=== PATIENT | female | born 1955 | race Caucasian/White ===

== ENCOUNTER 2019-11-28 01:39 | Outpatient (CLI) | payer OTHER, SELFPAY ==
--- NOTE | 2019-11-28 07:47 | DI.MAMMO_ITS ---
EXAM: MG MAMMO SCREENING CLINICAL HISTORY: SCREENING, Z12.31. TECHNIQUE: Bilateral full field digital CC and MLO mammographic images were obtained with 3D tomosyn thesis and utilizing computer aided detection (CAD). COMPARISON: Available for comparison. FINDINGS: Masses/Architectural Distortion: None seen. Asymmetric breast tissue in the upper-outer quadrant of t he left breast appears stable. Microcalcifications: No suspicious pleomorphic-type are seen. Skin Thickening/Nipple Retraction: None. IMPRESSION: 1. No significant interval change with no specific features of malignancy noted. 2. Unless there is more urgent need, screening mammography is recommended, as per [place] [employer] guidelines. BI-RADS Cat 2 - Benign Findings Breast Density - Category B - Scattered areas of fibroglandular density A negative radiographic report should not delay biopsy if a dominant or clinically suspicious mass is present. Up to ten percent of cancers are not identified on mammography. A negative report may reinforce clinical impression. Adenosis and dense breasts may obscure an underlying neoplasm. False positive reports average 6 to 10%. Patient will receive a letter notifying them of these results.
== END 2019-11-28 01:59 ==
PROVIDERS: PCP Family Medicine; Visit Provider Family Medicine
DX: Z12.31 Encounter for screening mammogram for malignant neoplasm of breast (principal)
CPT/HCPCS: 77063; 77067

== ENCOUNTER 2020-06-30 14:03 | Outpatient (REF) | payer OTHER, SELFPAY ==
[2020-07-03 23:40] LABS: SARS-CoV-2 RNA Undetected (Undetected)
== END 2020-06-30 14:23 ==
LOC: NCHCN 14:03
PROVIDERS: PCP Family Medicine; Visit Provider Family Medicine
DX: Z20.828 Contact with and (suspected) exposure to other viral communicable diseases (principal)
CPT/HCPCS: U0003

== ENCOUNTER 2020-10-16 14:28 | Outpatient (REF) | payer OTHER, SELFPAY ==
[2020-10-16 22:23] LABS: ALT 24 U/L (14-59); AST 27 U/L (15-37); Albumin 4.3 g/dL (3.4-5.0); Alkaline Phosphatase 71 U/L (46-116); Anion Gap 10.9 mmol/L (3-11); BUN 15 mg/dL (7-18); Bilirubin, Total 0.3 mg/dL (0.2-1.0); CO2 28.1 mmol/L (21.0-32.0); CREATININE 0.81 mg/dL (0.55-1.02); Calcium 9.1 mg/dL (8.5-10.1); Chloride 101 mmol/L (98-107); Cholesterol 267 mg/dL (<200); Glucose 86 mg/dL (74-106); Sodium 140 mmol/L (136-145); Total Protein 7.6 g/dL (6.4-8.2); Triglyceride 87 mg/dL (<150)
[2020-10-16 22:58] LABS: Calculated LDL 149 mg/dL (<100); HDL Cholesterol 101 mg/dL (40-60)
[2020-10-19 05:23] LABS: Vitamin D 25 Total 26.2 ng/ml (30-100)
== END 2020-10-16 14:48 ==
LOC: NCHCN 14:28
PROVIDERS: PCP Family Medicine; Visit Provider Family Medicine
DX: Z00.00 Encounter for general adult medical examination without abnormal findings (principal); Z13.220 Encounter for screening for lipoid disorders; Z13.228 Encounter for screening for other metabolic disorders
CPT/HCPCS: 80053; 80061; 82306

== ENCOUNTER 2020-10-26 20:37 | Outpatient (REF) | payer OTHER, SELFPAY ==
[2020-10-29 00:30] LABS: COVID-19 RT-PCR Result NEGATIVE (Negative)
== END 2020-10-26 20:57 ==
LOC: NCHCN 20:37
PROVIDERS: PCP Family Medicine; Visit Provider Family Medicine
DX: Z20.828 Contact with and (suspected) exposure to other viral communicable diseases (principal)
CPT/HCPCS: U0003

== ENCOUNTER 2020-12-04 02:41 | Outpatient (CLI) | payer OTHER, SELFPAY ==
--- NOTE | 2020-12-04 | DI.MAMMO_ITS ---
EXAM: MG MAMMO SCREENING CLINICAL HISTORY: SCREENING, Z12.31. TECHNIQUE: Bilateral full field digital CC and MLO mammographic images were obtained with 3D tomosyn thesis and utilizing computer aided detection (CAD). COMPARISON: Prior mammograms dating back to 2010, the most recent being November 2019. FINDINGS: There are no spiculated masses nor malignant appearing microcalcification groups. There is no signif icant architectural distortion nor skin thickening-retraction. IMPRESSION: No radiographic evidence of malignancy. BI-RADS Category 1 - Negative Breast Density - Category B - Scattered areas of fibroglandular density Breast density Category C or D implies that the patient has dense breast tissue. Dense breast tissue can make it harder to find cancer on a mammogram. Dense breast tissue is also associated with an incr eased risk of breast cancer. This information about the result of the mammogram report was provided to the patient to raise their awareness. Use this report when you speak with the patient about their risks for breast cancer, which includes their family history. At that time, you may recommend additional screening tests (Ultrasoun d or MRI) as these tests may add significant information. A negative radiographic report should not delay biopsy if a dominant or clinically suspicious mass is present. Up to ten percent of cancers are not identified on mammography. A negative report may reinforce clinical impression. Adenosis and dense breasts may obscure an underlying neoplasm. False positive reports average 6 to 10%. Patient will receive a letter notifying them of these results.
== END 2020-12-04 03:01 ==
PROVIDERS: PCP Family Medicine; Visit Provider Family Medicine
DX: Z12.31 Encounter for screening mammogram for malignant neoplasm of breast (principal)
CPT/HCPCS: 77063; 77067

== ENCOUNTER 2021-06-21 23:12 | Outpatient (REF) | payer OTHER, SELFPAY ==
[2021-06-21 21:20] LABS: Abs Immature Grans 0.01 10^3/uL (0.0-0.06); Absolute Basophil Count 0.04 10^3/uL (0.0-0.2); Absolute Eosinophil Count 0.02 10^3/uL (0.0-0.7); Absolute Monocyte Count 0.71 10^3/uL (0.1-0.8); Basophils % 0.4; Eosinophils % 0.2; HCT 42.5 % (36.0-46.0); HGB 13.7 g/dL (11.2-15.7); Immature Grans % 0.1; Lymphocytes % 11.1; MCH 30.2 pg (27.0-33.0); MCHC 32.2 % (32.0-36.0); MCV 93.6 fL (80-95); MPV 10.9 fL (8.0-11.0); Monocytes % 7.9; Neutrophils % 80.3; Nucleated RBC 0 %; Platelet Count 342 10^3/uL (130-400); RBC 4.54 10^6/uL (3.93-5.22); WBC 8.98 10^3/uL (4.4-10.8)
[2021-06-21 21:36] LABS: Bilirubin Negative (Negative); Blood Negative (Negative); Clarity Clear (Clear); Glucose Negative (Negative); Ketones Trace mg/dL (Negative); Leukocyte Esterase Negative (Negative); Nitrite Negative (Negative); Specific Gravity 1.015 (1.005-1.025); Urobilinogen 0.2 EU/dL (Up TO 0.2)
[2021-06-21 21:42] LABS: ALT 56 U/L (14-59); AST 64 U/L (15-37); Albumin 3.2 g/dL (3.4-5.0); Alkaline Phosphatase 93 U/L (46-116); Anion Gap 10.5 mmol/L (3-11); BUN 10 mg/dL (7-18); Bilirubin, Total 0.5 mg/dL (0.2-1.0); CO2 26.5 mmol/L (21.0-32.0); CREATININE 0.7 mg/dL (0.55-1.02); Chloride 104 mmol/L (98-107); Glucose 85 mg/dL (74-106); Potassium 4.9 mmol/L (3.5-5.1); Sodium 141 mmol/L (136-145); Total Protein 6.2 g/dL (6.4-8.2)
[2021-06-23 13:55] LABS: COVID-19 RT-PCR UVMMC Result Negative (Negative)
== END 2021-06-21 23:13 | disposition home or self-care (01) ==
LOC: NCHCN 23:12
PROVIDERS: PCP Family Medicine; Visit Provider Family Medicine
DX: R10.9 Unspecified abdominal pain (principal); Z20.822 Contact with and (suspected) exposure to COVID-19
CPT/HCPCS: 80053; U0003; 81003; 85025

== ENCOUNTER 2021-06-30 01:45 | Outpatient (CLI) | payer OTHER, SELFPAY ==
[2021-06-30] MEDS: Omnipaque 350 MG/ML 100 ML BTL 70 ML IJ (14:52)
--- NOTE | 2021-06-30 15:00 | DI.CT_ITS ---
Exam(s) CT CHEST W EXAM: CT CHEST W CLINICAL HISTORY: CANCER, C80.1, NEOPLASTIC MASSES ABD/PELVIC CT. TECHNIQUE: Multi planar reconstructions were performed. CONTRAST MATERIAL: Omnipaque 350; 75 cc COMPARISON: RECENT ABDOMINAL CT SCAN WAS REVIEWED FINDINGS: CHEST: LUNGS: There mild atelectasis-mild infiltrate markings noted in the lingular segment and anterior bas al segment of the left lower lobe with atelectasis extending into the lateral basal segment of the le ft lower lobe. No pleural effusion. No distinct ominous nodules in the left lung. In the right lung there are mild subpleural markings in the right middle lobe lateral segment and lat eral basal segment of the right lower lobe. No distinct ominous lung nodules. No pleural effusions. There are no significant focal findings in the trachea and mainstem bronchi. MEDIASTINUM: There is no hilar nor mediastinal adenopathy. No axillary adenopathy. No supraclavicula r adenopathy.Visualize lower half of the thyroid gland appears unremarkable. CARDIAC: Heart size is normal. There is no pericardial effusion.Caliber of the thoracic aorta is wit hin normal limits. VISUALIZED UPPER ABDOMEN:Ascites and concerning peritoneal masses, as seen on recent abdominal CT sca n. OSSEOUS: No significant osseous lesions.. IMPRESSION: 1. Atelectasis and mild infiltrates in the lung bases as described above. No ominous pulmonary nodul es nor pleural effusions and no intrathoracic adenopathy. 2. No lytic osseous lesions. 3. Lower most images of this chest study reveal intra-abdominal ascites and masses described on the r ecent abdominal CT scan. RADIATION DOSE DELIVERED: 382.22mGy.cm Total DLP DATA REPOSITORY: All CT scans at this facility are submitted to the National Radiology Data Registry (NRDR) Dose Index Registry (DIR) with the [employer] (A[employer]). RADIATION OPTIMIZATION: All CT scans at this facility use at least one of these dose optimization te chniques: automated exposure control; mA and/or kV adjustment per patient size (includes targeted exa ms where dose is matched to clinical indication); or iterative reconstruction.
== END 2021-06-30 02:05 ==
PROVIDERS: PCP Family Medicine; Visit Provider Family Medicine
DX: C80.1 Malignant (primary) neoplasm, unspecified (principal); J98.11 Atelectasis; R91.8 Other nonspecific abnormal finding of lung field; R18.8 Other ascites; R19.07 Generalized intra-abdominal and pelvic swelling, mass and lump
CPT/HCPCS: 71260; J3490

== ENCOUNTER 2021-07-29 01:07 | Outpatient (RCR) | payer OTHER, SELFPAY ==
[2021-07-22 07:58] LABS: Abs Immature Grans 0.01 10^3/uL (0.0-0.06); Absolute Basophil Count 0.03 10^3/uL (0.0-0.2); Absolute Eosinophil Count 0.15 10^3/uL (0.0-0.7); Absolute Lymphocyte Count 1.07 10^3/uL (1.2-3.4); Absolute Monocyte Count 0.39 10^3/uL (0.1-0.8); Absolute Neutrophil Count 2.79 10^3/uL (1.2-6.7); Basophils % 0.7; Eosinophils % 3.4; HCT 40.3 % (36.0-46.0); Immature Grans % 0.2; Lymphocytes % 24.1; MCH 29.5 pg (27.0-33.0); MCHC 32.3 % (32.0-36.0); MCV 91.4 fL (80-95); MPV 9.8 fL (8.0-11.0); Monocytes % 8.8; Neutrophils % 62.8; Nucleated RBC 0 %; Platelet Count 301 10^3/uL (130-400); RBC 4.41 10^6/uL (3.93-5.22); RDW 11.9 % (11.7-14.6); RDW-SD 39.8 fL; WBC 4.44 10^3/uL (4.4-10.8)
[2021-07-22 08:16] LABS: ALT 74 U/L (14-59); AST 50 U/L (15-37); Alkaline Phosphatase 117 U/L (46-116); Anion Gap 8.2 mmol/L (3-11); BUN 16 mg/dL (7-18); Bilirubin, Total 0.2 mg/dL (0.2-1.0); CO2 28.8 mmol/L (21.0-32.0); CREATININE 0.8 mg/dL (0.55-1.02); Calcium 8.9 mg/dL (8.5-10.1); Chloride 104 mmol/L (98-107); Glucose 109 mg/dL (74-106); Potassium 4.3 mmol/L (3.5-5.1); Sodium 141 mmol/L (136-145); Total Protein 6.9 g/dL (6.4-8.2)
[2021-07-22] MEDS: Normal Saline Flush 10 ML SYR IVP (08:43)
[2021-07-22] MEDS: Heparin 500 UNITS/5 ML SYRINGE IV (09:36)
[2021-07-23 12:53] LABS: CA 125 4991 U/mL (<30)
[2021-07-29] MEDS: Normal Saline Flush 10 ML SYR IVP (07:40)
[2021-07-29] MEDS: Heparin 500 UNITS/5 ML SYRINGE IV (07:41)
[2021-07-29 07:48] LABS: Abs Immature Grans 0.01 10^3/uL (0.0-0.06); Absolute Basophil Count 0.05 10^3/uL (0.0-0.2); Absolute Eosinophil Count 0.15 10^3/uL (0.0-0.7); Absolute Lymphocyte Count 1.88 10^3/uL (1.2-3.4); Absolute Monocyte Count 0.85 10^3/uL (0.1-0.8); Basophils % 1.3; Eosinophils % 3.8; HCT 40.4 % (36.0-46.0); HGB 13.1 g/dL (11.2-15.7); Immature Grans % 0.3; Lymphocytes % 47.7; MCH 29.2 pg (27.0-33.0); MCHC 32.4 % (32.0-36.0); MPV 9.4 fL (8.0-11.0); Monocytes % 21.6; Neutrophils % 25.3; Nucleated RBC 0 %; Platelet Count 238 10^3/uL (130-400); RBC 4.49 10^6/uL (3.93-5.22); RDW 12.2 % (11.7-14.6); RDW-SD 40.3 fL; WBC 3.94 10^3/uL (4.4-10.8)
[2021-07-29 08:03] LABS: ALT 83 U/L (14-59); AST 51 U/L (15-37); Albumin 3.2 g/dL (3.4-5.0); Alkaline Phosphatase 107 U/L (46-116); Anion Gap 6.9 mmol/L (3-11); BUN 17 mg/dL (7-18); Bilirubin, Total 0.3 mg/dL (0.2-1.0); CO2 29.1 mmol/L (21.0-32.0); CREATININE 0.8 mg/dL (0.55-1.02); Calcium 9.1 mg/dL (8.5-10.1); Chloride 104 mmol/L (98-107); Glucose 95 mg/dL (74-106); Potassium 4.6 mmol/L (3.5-5.1); Sodium 140 mmol/L (136-145); Total Protein 6.9 g/dL (6.4-8.2)
[2021-07-30 15:18] LABS: CA 125 4123 U/mL (<30)
== END 2021-08-05 23:59 | disposition home or self-care (01) ==
LOC: INF 01:07
PROVIDERS: Obstetrics & Gynecology Gynecologic Oncology; PCP Family Medicine; Visit Provider Nurse Practitioner Family
DX: C78.6 Secondary malignant neoplasm of retroperitoneum and peritoneum (principal); Z45.2 Encounter for adjustment and management of vascular access device
CPT/HCPCS: 36591; 80053; 86304; 85025

== ENCOUNTER 2021-09-02 01:41 | Outpatient (RCR) | payer OTHER, SELFPAY ==
[2021-08-12] MEDS: Heparin 500 UNITS/5 ML SYRINGE IV (07:41)
[2021-08-12] MEDS: Normal Saline Flush 10 ML SYR IVP (07:41)
[2021-08-12 07:45] LABS: Abs Immature Grans 0.01 10^3/uL (0.0-0.06); Absolute Basophil Count 0.02 10^3/uL (0.0-0.2); Absolute Eosinophil Count 0.08 10^3/uL (0.0-0.7); Absolute Lymphocyte Count 1.46 10^3/uL (1.2-3.4); Absolute Monocyte Count 0.31 10^3/uL (0.1-0.8); Absolute Neutrophil Count 1.85 10^3/uL (1.2-6.7); Basophils % 0.5; Eosinophils % 2.1; HCT 38.2 % (36.0-46.0); HGB 12.3 g/dL (11.2-15.7); Immature Grans % 0.3; Lymphocytes % 39.1; MCH 28.9 pg (27.0-33.0); MCHC 32.2 % (32.0-36.0); MCV 89.7 fL (80-95); MPV 9.6 fL (8.0-11.0); Monocytes % 8.3; Neutrophils % 49.7; Nucleated RBC 0 %; Platelet Count 167 10^3/uL (130-400); RBC 4.26 10^6/uL (3.93-5.22); RDW 12.4 % (11.7-14.6); RDW-SD 40.7 fL; WBC 3.73 10^3/uL (4.4-10.8)
[2021-08-12 08:01] LABS: ALT 96 U/L (14-59); AST 50 U/L (15-37); Albumin 3.1 g/dL (3.4-5.0); Alkaline Phosphatase 95 U/L (46-116); Anion Gap 7.1 mmol/L (3-11); BUN 16 mg/dL (7-18); Bilirubin, Total 0.3 mg/dL (0.2-1.0); CO2 27.9 mmol/L (21.0-32.0); CREATININE 0.8 mg/dL (0.55-1.02); Calcium 8.7 mg/dL (8.5-10.1); Chloride 104 mmol/L (98-107); Glucose 118 mg/dL (74-106); Potassium 4.1 mmol/L (3.5-5.1); Sodium 139 mmol/L (136-145); Total Protein 6.6 g/dL (6.4-8.2)
[2021-08-13 12:13] LABS: CA 125 1770 U/mL (<30)
[2021-09-02] MEDS: Heparin 500 UNITS/5 ML SYRINGE IV (07:42)
[2021-09-02] MEDS: Normal Saline Flush 10 ML SYR IVP (07:42)
[2021-09-02 08:00] LABS: Abs Immature Grans 0.01 10^3/uL (0.0-0.06); Absolute Basophil Count 0.02 10^3/uL (0.0-0.2); Absolute Eosinophil Count 0.04 10^3/uL (0.0-0.7); Absolute Lymphocyte Count 1.74 10^3/uL (1.2-3.4); Absolute Monocyte Count 0.23 10^3/uL (0.1-0.8); Absolute Neutrophil Count 1.55 10^3/uL (1.2-6.7); Basophils % 0.6; Eosinophils % 1.1; HCT 36.1 % (36.0-46.0); HGB 11.8 g/dL (11.2-15.7); Immature Grans % 0.3; Lymphocytes % 48.5; MCH 29.1 pg (27.0-33.0); MCHC 32.7 % (32.0-36.0); MCV 88.9 fL (80-95); Monocytes % 6.4; Neutrophils % 43.1; Nucleated RBC 0 %; Platelet Count 207 10^3/uL (130-400); RBC 4.06 10^6/uL (3.93-5.22); RDW 13.9 % (11.7-14.6); RDW-SD 45.7 fL; WBC 3.59 10^3/uL (4.4-10.8)
[2021-09-02 08:20] LABS: ALT 62 U/L (14-59); AST 40 U/L (15-37); Albumin 3.2 g/dL (3.4-5.0); Alkaline Phosphatase 84 U/L (46-116); Anion Gap 7.5 mmol/L (3-11); BUN 12 mg/dL (7-18); Bilirubin, Total 0.3 mg/dL (0.2-1.0); CO2 29.5 mmol/L (21.0-32.0); CREATININE 0.7 mg/dL (0.55-1.02); Calcium 8.7 mg/dL (8.5-10.1); Chloride 105 mmol/L (98-107); Glucose 111 mg/dL (74-106); Potassium 4.1 mmol/L (3.5-5.1); Sodium 142 mmol/L (136-145); Total Protein 6.7 g/dL (6.4-8.2)
[2021-09-03 11:12] LABS: CA 125 1320 U/mL (<30)
== END 2021-09-05 23:59 | disposition home or self-care (01) ==
LOC: INF 01:41
PROVIDERS: PCP Family Medicine; Visit Provider Nurse Practitioner Family
DX: C78.6 Secondary malignant neoplasm of retroperitoneum and peritoneum (principal); Z45.2 Encounter for adjustment and management of vascular access device
CPT/HCPCS: 36591; 80053; 86304; 85025

== ENCOUNTER 2021-12-14 01:49 | Outpatient (CLI) | payer OTHER, SELFPAY ==
[2021-12-16 14:36] LABS: COVID-19 RT-PCR UVMMC Result Negative (Negative)
== END 2021-12-14 01:50 | disposition home or self-care (01) ==
LOC: LBO 01:49
PROVIDERS: PCP Family Medicine; Visit Provider Family Medicine
DX: Z20.822 Contact with and (suspected) exposure to COVID-19 (principal); C80.1 Malignant (primary) neoplasm, unspecified
CPT/HCPCS: U0003

== ENCOUNTER 2021-12-16 02:32 | Outpatient (RCR) | payer OTHER, SELFPAY | END 2022-01-03 23:59 | disposition home or self-care (01) | LOC: INF 02:32 | PROVIDERS: PCP Family Medicine; Visit Provider Family Medicine | DX: Z29.8 Encounter for other specified prophylactic measures (principal) | CPT/HCPCS: 96372; Q0221 ==

== ENCOUNTER 2022-01-18 01:20 | Outpatient (CLI) | payer OTHER, SELFPAY ==
[2022-01-19 01:25] LABS: COVID-19 RT-PCR UVMMC Result Negative (Negative)
== END 2022-01-18 01:21 | disposition home or self-care (01) ==
PROVIDERS: PCP Family Medicine; Visit Provider Family Medicine
DX: Z20.822 Contact with and (suspected) exposure to COVID-19 (principal); Z01.818 Encounter for other preprocedural examination
CPT/HCPCS: U0003

== ENCOUNTER 2022-01-20 03:18 | Outpatient (RCR) | payer OTHER, SELFPAY | END 2022-02-03 23:59 | disposition home or self-care (01) | LOC: INF 03:18 | PROVIDERS: PCP Family Medicine; Visit Provider Family Medicine | DX: Z29.8 Encounter for other specified prophylactic measures (principal) | CPT/HCPCS: 96372; Q0221 ==

== ENCOUNTER 2022-02-14 02:00 | Outpatient (RCR) | payer OTHER, SELFPAY ==
[2022-02-14] MEDS: Normal Saline Flush 10 ML SYR IVP (07:43)
[2022-02-14 07:51] LABS: Bilirubin Negative (Negative); Blood Negative (Negative); Clarity Clear (Clear); Glucose Negative (Negative); Ketones Negative (Negative); Leukocyte Esterase Negative (Negative); Nitrite Negative (Negative); Specific Gravity 1.015 (1.005-1.025); Urobilinogen 0.2 EU/dL (Up TO 0.2); pH 6.5 (5-8)
[2022-02-14 07:52] LABS: Absolute Basophil Count 0.02 10^3/uL (0.0-0.2); Absolute Eosinophil Count 0.03 10^3/uL (0.0-0.7); Absolute Lymphocyte Count 1.85 10^3/uL (1.2-3.4); Absolute Monocyte Count 0.44 10^3/uL (0.1-0.8); Basophils % 0.5; Eosinophils % 0.8; HCT 34.2 % (36.0-46.0); HGB 11.5 g/dL (11.2-15.7); Lymphocytes % 50.8; MCH 32.3 pg (27.0-33.0); MCHC 33.6 % (32.0-36.0); MCV 96.1 fL (80-95); MPV 9.2 fL (8.0-11.0); Monocytes % 12.1; Neutrophils % 35.8; Nucleated RBC 0 %; Platelet Count 188 10^3/uL (130-400); RBC 3.56 10^6/uL (3.93-5.22); RDW 15.9 % (11.7-14.6); RDW-SD 54.6 fL; WBC 3.64 10^3/uL (4.4-10.8)
[2022-02-14 08:06] LABS: ALT 33 U/L (14-59); AST 27 U/L (15-37); Albumin 3.8 g/dL (3.4-5.0); Alkaline Phosphatase 48 U/L (46-116); Anion Gap 9.9 mmol/L (3-11); BUN 11 mg/dL (7-18); Bilirubin, Total 0.4 mg/dL (0.2-1.0); CO2 25.1 mmol/L (21.0-32.0); CREATININE 0.8 mg/dL (0.55-1.02); Calcium 8.6 mg/dL (8.5-10.1); Chloride 101 mmol/L (98-107); Glucose 95 mg/dL (74-106); Magnesium 1.6 mg/dL (1.8-2.4); Potassium 3.7 mmol/L (3.5-5.1); Sodium 136 mmol/L (136-145); Total Protein 7.2 g/dL (6.4-8.2)
== END 2022-03-05 23:59 | disposition home or self-care (01) ==
LOC: INF 02:00
PROVIDERS: PCP Family Medicine; Visit Provider Internal Medicine Medical Oncology
DX: Z45.2 Encounter for adjustment and management of vascular access device (principal); C78.6 Secondary malignant neoplasm of retroperitoneum and peritoneum
CPT/HCPCS: 36591; 80053; 81003; 83735; 85025

== ENCOUNTER 2022-03-28 02:28 | Outpatient (RCR) | payer OTHER, SELFPAY ==
[2022-03-07] MEDS: Normal Saline Flush 10 ML SYR IVP (07:42)
[2022-03-07 08:14] LABS: Bilirubin Negative (Negative); Blood Negative (Negative); Clarity Clear (Clear); Glucose Negative (Negative); Ketones Negative (Negative); Leukocyte Esterase Trace (Negative); Nitrite Negative (Negative); Urobilinogen 0.2 EU/dL (Up TO 0.2)
[2022-03-07 08:19] LABS: Abs Immature Grans 0.01 10^3/uL (0.0-0.06); Absolute Basophil Count 0.02 10^3/uL (0.0-0.2); Absolute Eosinophil Count 0.06 10^3/uL (0.0-0.7); Absolute Lymphocyte Count 1.77 10^3/uL (1.2-3.4); Absolute Neutrophil Count 2.73 10^3/uL (1.2-6.7); Basophils % 0.4; Eosinophils % 1.2; HCT 34.4 % (36.0-46.0); HGB 11.5 g/dL (11.2-15.7); Immature Grans % 0.2; Lymphocytes % 34.8; MCH 33.1 pg (27.0-33.0); MCHC 33.4 % (32.0-36.0); MCV 99 fL (80-95); MPV 10.1 fL (8.0-11.0); Monocytes % 9.8; Neutrophils % 53.6; Platelet Count 220 10^3/uL (130-400); RBC 3.47 10^6/uL (3.93-5.22); RDW 17.7 % (11.7-14.6); RDW-SD 63.9 fL; WBC 5.09 10^3/uL (4.4-10.8)
[2022-03-07 08:23] LABS: Bacteria Few HPF (Negative); C & S Indicated? Yes; Casts Negative LPF (Negative); Crystals Negative HPF (Negative); Epithelial Cells Few HPF (Negative); Mucus Moderate (Negative); RBC Negative HPF (0-2)
[2022-03-07 08:44] LABS: ALT 29 U/L (14-59); AST 24 U/L (15-37); Albumin 3.9 g/dL (3.4-5.0); Alkaline Phosphatase 48 U/L (46-116); Anion Gap 7.7 mmol/L (3-11); BUN 13 mg/dL (7-18); Bilirubin, Total 0.4 mg/dL (0.2-1.0); CO2 26.3 mmol/L (21.0-32.0); CREATININE 0.9 mg/dL (0.55-1.02); Calcium 8.7 mg/dL (8.5-10.1); Chloride 105 mmol/L (98-107); Glucose 88 mg/dL (74-106); Magnesium 1.9 mg/dL (1.8-2.4); Potassium 4.2 mmol/L (3.5-5.1); Sodium 139 mmol/L (136-145); Total Protein 7.1 g/dL (6.4-8.2)
[2022-03-08 09:56] LABS: CA 125 <3 U/mL (<30)
[2022-03-28] MEDS: Normal Saline Flush 10 ML SYR IVP (08:10)
[2022-03-28 08:32] LABS: Absolute Basophil Count 0.03 10^3/uL (0.0-0.2); Absolute Eosinophil Count 0.06 10^3/uL (0.0-0.7); Absolute Lymphocyte Count 1.54 10^3/uL (1.2-3.4); Absolute Monocyte Count 0.52 10^3/uL (0.1-0.8); Basophils % 0.7; Eosinophils % 1.4; HCT 29.7 % (36.0-46.0); HGB 10.2 g/dL (11.2-15.7); Lymphocytes % 36.2; MCH 35.9 pg (27.0-33.0); MCHC 34.3 % (32.0-36.0); MCV 105 fL (80-95); Monocytes % 12.2; Neutrophils % 49.5; Platelet Count 168 10^3/uL (130-400); RBC 2.84 10^6/uL (3.93-5.22); RDW 17.2 % (11.7-14.6); RDW-SD 65.4 fL; WBC 4.25 10^3/uL (4.4-10.8)
[2022-03-28 08:33] LABS: Bilirubin Negative (Negative); Blood Negative (Negative); Clarity Clear (Clear); Glucose Negative (Negative); Ketones Trace mg/dL (Negative); Leukocyte Esterase Negative (Negative); Nitrite Negative (Negative); Urobilinogen 0.2 EU/dL (Up TO 0.2); pH 6.5 (5-8)
[2022-03-28 08:48] LABS: ALT 27 U/L (14-59); AST 24 U/L (15-37); Albumin 3.8 g/dL (3.4-5.0); Alkaline Phosphatase 54 U/L (46-116); Anion Gap 8.7 mmol/L (3-11); BUN 16 mg/dL (7-18); Bilirubin, Total 0.5 mg/dL (0.2-1.0); CO2 25.3 mmol/L (21.0-32.0); CREATININE 0.9 mg/dL (0.55-1.02); Calcium 8.9 mg/dL (8.5-10.1); Chloride 106 mmol/L (98-107); Glucose 93 mg/dL (74-106); Magnesium 1.9 mg/dL (1.8-2.4); Potassium 4.4 mmol/L (3.5-5.1); Sodium 140 mmol/L (136-145)
[2022-03-29 10:33] LABS: CA 125 4 U/mL (<30)
== END 2022-04-05 23:59 | disposition home or self-care (01) ==
LOC: INF 02:28
PROVIDERS: PCP Family Medicine; Visit Provider Internal Medicine Medical Oncology
DX: C78.6 Secondary malignant neoplasm of retroperitoneum and peritoneum (principal); C56.9 Malignant neoplasm of unspecified ovary; Z45.2 Encounter for adjustment and management of vascular access device
CPT/HCPCS: 36591; 80053; 86304; 81003; 81015; 83735; 85025; 87086

== ENCOUNTER 2022-04-18 03:07 | Outpatient (RCR) | payer OTHER, SELFPAY ==
[2022-04-18] MEDS: Normal Saline Flush 10 ML SYR IVP (07:53)
[2022-04-18 08:08] LABS: Abs Immature Grans 0.01 10^3/uL (0.0-0.06); Absolute Basophil Count 0.03 10^3/uL (0.0-0.2); Absolute Eosinophil Count 0.06 10^3/uL (0.0-0.7); Absolute Lymphocyte Count 1.59 10^3/uL (1.2-3.4); Absolute Monocyte Count 0.48 10^3/uL (0.1-0.8); Absolute Neutrophil Count 1.58 10^3/uL (1.2-6.7); Basophils % 0.8; Eosinophils % 1.6; HCT 25.4 % (36.0-46.0); Immature Grans % 0.3; Lymphocytes % 42.4; MCH 37.7 pg (27.0-33.0); MCHC 35.4 % (32.0-36.0); MCV 106 fL (80-95); MPV 10.8 fL (8.0-11.0); Monocytes % 12.8; Neutrophils % 42.1; Platelet Count 191 10^3/uL (130-400); RBC 2.39 10^6/uL (3.93-5.22); RDW 17.5 % (11.7-14.6); RDW-SD 67.7 fL; WBC 3.75 10^3/uL (4.4-10.8)
[2022-04-18 08:09] LABS: Bilirubin Negative (Negative); Blood Negative (Negative); Clarity Clear (Clear); Glucose Negative (Negative); Ketones Negative (Negative); Leukocyte Esterase Small (Negative); Nitrite Negative (Negative); Specific Gravity 1.015 (1.005-1.025); Urobilinogen 0.2 EU/dL (Up TO 0.2)
[2022-04-18 08:18] LABS: Bacteria Negative HPF (Negative); C & S Indicated? Yes; Casts Negative LPF (Negative); Crystals Negative HPF (Negative); Epithelial Cells Rare HPF (Negative); Mucus Trace (Negative); Other Cells Rare Transitional (Negative); RBC Negative HPF (0-2)
[2022-04-18 08:52] LABS: ALT 27 U/L (14-59); AST 24 U/L (15-37); Albumin 3.8 g/dL (3.4-5.0); Alkaline Phosphatase 58 U/L (46-116); Anion Gap 9.6 mmol/L (3-11); BUN 13 mg/dL (7-18); Bilirubin, Total 0.2 mg/dL (0.2-1.0); CO2 25.4 mmol/L (21.0-32.0); CREATININE 0.7 mg/dL (0.55-1.02); Calcium 8.9 mg/dL (8.5-10.1); Chloride 104 mmol/L (98-107); Glucose 93 mg/dL (74-106); Magnesium 1.8 mg/dL (1.8-2.4); Potassium 4.2 mmol/L (3.5-5.1); Sodium 139 mmol/L (136-145)
[2022-04-19 15:30] LABS: CA 125 6 U/mL (<30)
== END 2022-05-05 23:59 | disposition home or self-care (01) ==
LOC: INF 03:07
PROVIDERS: PCP Family Medicine; Visit Provider Internal Medicine Medical Oncology
DX: Z45.2 Encounter for adjustment and management of vascular access device (principal); C78.6 Secondary malignant neoplasm of retroperitoneum and peritoneum; C56.9 Malignant neoplasm of unspecified ovary
CPT/HCPCS: 36591; 80053; 86304; 81003; 81015; 83735; 85025; 87086

== ENCOUNTER 2022-05-30 02:30 | Outpatient (RCR) | payer OTHER, SELFPAY ==
[2022-05-10] MEDS: Normal Saline Flush 10 ML SYR IVP (08:53)
[2022-05-10 08:56] LABS: Abs Immature Grans 0.01 10^3/uL (0.0-0.06); Absolute Basophil Count 0.03 10^3/uL (0.0-0.2); Absolute Eosinophil Count 0.07 10^3/uL (0.0-0.7); Absolute Monocyte Count 0.45 10^3/uL (0.1-0.8); Absolute Neutrophil Count 1.48 10^3/uL (1.2-6.7); Basophils % 0.9; HGB 7.2 g/dL (11.2-15.7); Immature Grans % 0.3; Lymphocytes % 40.7; MCH 37.1 pg (27.0-33.0); MCHC 34.6 % (32.0-36.0); MCV 107 fL (80-95); MPV 10.8 fL (8.0-11.0); Monocytes % 13.1; Platelet Count 183 10^3/uL (130-400); RBC 1.94 10^6/uL (3.93-5.22); RDW 17.5 % (11.7-14.6); RDW-SD 67.5 fL; WBC 3.44 10^3/uL (4.4-10.8)
[2022-05-10 09:04] LABS: HCT 20.8 % (36.0-46.0)
[2022-05-10 09:09] LABS: Bilirubin Negative (Negative); Blood Negative (Negative); Clarity Clear (Clear); Glucose Negative (Negative); Ketones Negative (Negative); Leukocyte Esterase Negative (Negative); Nitrite Negative (Negative); Specific Gravity 1.015 (1.005-1.025); Urobilinogen 0.2 EU/dL (Up TO 0.2)
[2022-05-10 09:14] LABS: ALT 24 U/L (14-59); AST 22 U/L (15-37); Albumin 3.7 g/dL (3.4-5.0); Alkaline Phosphatase 56 U/L (46-116); Anion Gap 9.6 mmol/L (3-11); BUN 13 mg/dL (7-18); Bilirubin, Total 0.3 mg/dL (0.2-1.0); CO2 24.4 mmol/L (21.0-32.0); CREATININE 0.7 mg/dL (0.55-1.02); Calcium 8.9 mg/dL (8.5-10.1); Chloride 104 mmol/L (98-107); Glucose 104 mg/dL (74-106); Magnesium 1.6 mg/dL (1.8-2.4); Sodium 138 mmol/L (136-145)
[2022-05-10 09:30] LABS: Diff Comment RBC Morph Reviewed; Macrocytosis 2+; Poikilocytes 1+
[2022-05-11 13:20] LABS: CA 125 6 U/mL (<30)
[2022-05-16 08:50] LABS: Abs Immature Grans 0.03 10^3/uL (0.0-0.06); Absolute Basophil Count 0.05 10^3/uL (0.0-0.2); Absolute Eosinophil Count 0.06 10^3/uL (0.0-0.7); Absolute Lymphocyte Count 1.81 10^3/uL (1.2-3.4); Absolute Monocyte Count 0.64 10^3/uL (0.1-0.8); Absolute Neutrophil Count 1.86 10^3/uL (1.2-6.7); Basophils % 1.1; Eosinophils % 1.3; Immature Grans % 0.7; Lymphocytes % 40.7; MCH 36.7 pg (27.0-33.0); MCHC 33.7 % (32.0-36.0); MCV 109 fL (80-95); MPV 10.7 fL (8.0-11.0); Monocytes % 14.4; Neutrophils % 41.8; Nucleated RBC 0.9 % (0.0-0.3); Platelet Count 203 10^3/uL (130-400); RBC 1.77 10^6/uL (3.93-5.22); RDW 17.9 % (11.7-14.6); RDW-SD 71.6 fL; WBC 4.45 10^3/uL (4.4-10.8)
[2022-05-16] MEDS: Normal Saline Flush 10 ML SYR IVP ×2 (09:03→14:30)
[2022-05-16 09:05] LABS: HGB 6.5 g/dL (11.2-15.7)
[2022-05-16 09:06] LABS: ALT 27 U/L (14-59); AST 23 U/L (15-37); Albumin 3.7 g/dL (3.4-5.0); Alkaline Phosphatase 53 U/L (46-116); Anion Gap 8.2 mmol/L (3-11); Anisocytosis 2+; BUN 12 mg/dL (7-18); Bilirubin, Total 0.2 mg/dL (0.2-1.0); CO2 25.8 mmol/L (21.0-32.0); CREATININE 0.7 mg/dL (0.55-1.02); Calcium 8.9 mg/dL (8.5-10.1); Chloride 105 mmol/L (98-107); Diff Comment RBC Morph Reviewed; Glucose 101 mg/dL (74-106); HCT 19.3 % (36.0-46.0); Polychromasia Present; Sodium 139 mmol/L (136-145); Total Protein 6.9 g/dL (6.4-8.2)
[2022-05-16] MEDS: Heparin 500 UNITS/5 ML SYRINGE IV ×2 (09:07→14:30)
[2022-05-17] VITALS (10 sets, daily range): BP systolic 132–156; BP diastolic 62–92; PULSE 61–85; RESP 16–17; TEMP 36.2–36.8; O2SAT 97–100
[2022-05-17] MEDS: Heparin 500 UNITS/5 ML SYRINGE IV (13:06)
[2022-05-17] MEDS: Normal Saline Flush 10 ML SYR IVP (13:06)
[2022-05-24 08:15] LABS: Abs Immature Grans 0.01 10^3/uL (0.0-0.06); Absolute Basophil Count 0.04 10^3/uL (0.0-0.2); Absolute Eosinophil Count 0.07 10^3/uL (0.0-0.7); Absolute Lymphocyte Count 1.31 10^3/uL (1.2-3.4); Absolute Monocyte Count 0.48 10^3/uL (0.1-0.8); Eosinophils % 1.7; HCT 35.5 % (36.0-46.0); HGB 12.1 g/dL (11.2-15.7); Immature Grans % 0.2; Lymphocytes % 32.7; MCH 35.4 pg (27.0-33.0); MCHC 34.1 % (32.0-36.0); MCV 104 fL (80-95); MPV 9.9 fL (8.0-11.0); Neutrophils % 52.4; Platelet Count 211 10^3/uL (130-400); RBC 3.42 10^6/uL (3.93-5.22); RDW 21.1 % (11.7-14.6); RDW-SD 78.7 fL; WBC 4.01 10^3/uL (4.4-10.8)
[2022-05-24 08:36] LABS: Anisocytosis 3+; Diff Comment RBC Morph Reviewed; Polychromasia Present
[2022-05-24 08:37] LABS: Poikilocytes 1+
[2022-05-24] MEDS: Normal Saline Flush 10 ML SYR IVP (08:44)
[2022-05-24] MEDS: Heparin 500 UNITS/5 ML SYRINGE IV (08:44)
[2022-05-30] MEDS: Normal Saline Flush 10 ML SYR IVP (07:46)
[2022-05-30 08:02] LABS: Bilirubin Negative (Negative); Blood Negative (Negative); Clarity Clear (Clear); Glucose Negative (Negative); Ketones Negative (Negative); Leukocyte Esterase Small (Negative); Nitrite Negative (Negative); Urobilinogen 0.2 EU/dL (Up TO 0.2)
[2022-05-30 08:05] LABS: Abs Immature Grans 0.01 10^3/uL (0.0-0.06); Absolute Basophil Count 0.03 10^3/uL (0.0-0.2); Absolute Eosinophil Count 0.08 10^3/uL (0.0-0.7); Absolute Lymphocyte Count 1.41 10^3/uL (1.2-3.4); Absolute Neutrophil Count 1.78 10^3/uL (1.2-6.7); Basophils % 0.8; Eosinophils % 2.1; HCT 35.9 % (36.0-46.0); HGB 12.1 g/dL (11.2-15.7); Immature Grans % 0.3; MCH 35.3 pg (27.0-33.0); MCHC 33.7 % (32.0-36.0); MCV 105 fL (80-95); MPV 9.7 fL (8.0-11.0); Monocytes % 13.1; Neutrophils % 46.7; Platelet Count 212 10^3/uL (130-400); RBC 3.43 10^6/uL (3.93-5.22); RDW 19.3 % (11.7-14.6); RDW-SD 74.4 fL; WBC 3.81 10^3/uL (4.4-10.8)
[2022-05-30 08:20] LABS: ALT 29 U/L (14-59); AST 27 U/L (15-37); Albumin 3.9 g/dL (3.4-5.0); Alkaline Phosphatase 55 U/L (46-116); Anion Gap 7.6 mmol/L (3-11); BUN 13 mg/dL (7-18); Bilirubin, Total 0.7 mg/dL (0.2-1.0); CO2 26.4 mmol/L (21.0-32.0); CREATININE 0.8 mg/dL (0.55-1.02); Calcium 8.9 mg/dL (8.5-10.1); Chloride 102 mmol/L (98-107); Glucose 140 mg/dL (74-106); Magnesium 1.8 mg/dL (1.8-2.4); Potassium 4.3 mmol/L (3.5-5.1); Sodium 136 mmol/L (136-145); Total Protein 7.2 g/dL (6.4-8.2)
[2022-05-31 10:35] LABS: CA 125 9 U/mL (<30)
== END 2022-06-05 23:59 | disposition home or self-care (01) ==
LOC: INF 02:30
PROVIDERS: PCP Family Medicine; Visit Provider Internal Medicine Medical Oncology
DX: C57.00 Malignant neoplasm of unspecified fallopian tube (principal); Z45.2 Encounter for adjustment and management of vascular access device
CPT/HCPCS: 36430; 36591; 80053; 86304; 86850; 86900; 86901; 86920; 81003; 83735; 85025; P9016

== ENCOUNTER 2022-06-20 02:08 | Outpatient (RCR) | payer OTHER, SELFPAY ==
[2022-06-06 00:21] VITALS: BP 149/92; PULSE 84; RESP 16; TEMP 36.5
[2022-06-06] MEDS: Normal Saline Flush 10 ML SYR IVP (08:00)
[2022-06-06] MEDS: Heparin 500 UNITS/5 ML SYRINGE IV (08:00)
[2022-06-06 08:30] LABS: Abs Immature Grans 0.01 10^3/uL (0.0-0.06); Absolute Basophil Count 0.03 10^3/uL (0.0-0.2); Absolute Eosinophil Count 0.06 10^3/uL (0.0-0.7); Absolute Lymphocyte Count 1.37 10^3/uL (1.2-3.4); Absolute Monocyte Count 0.49 10^3/uL (0.1-0.8); Basophils % 0.7; Eosinophils % 1.4; HCT 35.8 % (36.0-46.0); HGB 12.2 g/dL (11.2-15.7); Immature Grans % 0.2; Lymphocytes % 31.4; MCH 35.8 pg (27.0-33.0); MCHC 34.1 % (32.0-36.0); MCV 105 fL (80-95); MPV 9.8 fL (8.0-11.0); Monocytes % 11.2; Neutrophils % 55.1; Platelet Count 165 10^3/uL (130-400); RBC 3.41 10^6/uL (3.93-5.22); RDW 18.1 % (11.7-14.6); RDW-SD 70.3 fL; WBC 4.36 10^3/uL (4.4-10.8)
[2022-06-20] MEDS: Normal Saline Flush 10 ML SYR IVP (13:48)
[2022-06-20 14:10] LABS: Bilirubin Negative (Negative); Blood Negative (Negative); Clarity Clear (Clear); Glucose Negative (Negative); Ketones Negative (Negative); Leukocyte Esterase Negative (Negative); Nitrite Negative (Negative); Urobilinogen 0.2 EU/dL (Up TO 0.2)
[2022-06-20 14:18] LABS: Abs Immature Grans 0.01 10^3/uL (0.0-0.06); Absolute Basophil Count 0.04 10^3/uL (0.0-0.2); Absolute Eosinophil Count 0.04 10^3/uL (0.0-0.7); Absolute Lymphocyte Count 1.56 10^3/uL (1.2-3.4); Absolute Monocyte Count 0.43 10^3/uL (0.1-0.8); Absolute Neutrophil Count 3.33 10^3/uL (1.2-6.7); Basophils % 0.7; Eosinophils % 0.7; HCT 35.3 % (36.0-46.0); Immature Grans % 0.2; Lymphocytes % 28.8; MCH 35.5 pg (27.0-33.0); MCV 104 fL (80-95); MPV 9.7 fL (8.0-11.0); Monocytes % 7.9; Neutrophils % 61.7; Platelet Count 176 10^3/uL (130-400); RBC 3.38 10^6/uL (3.93-5.22); RDW 16.7 % (11.7-14.6); RDW-SD 64.6 fL; WBC 5.41 10^3/uL (4.4-10.8)
[2022-06-20 14:23] LABS: ALT 27 U/L (14-59); AST 27 U/L (15-37); Albumin 3.9 g/dL (3.4-5.0); Alkaline Phosphatase 55 U/L (46-116); Anion Gap 9.4 mmol/L (3-11); BUN 18 mg/dL (7-18); Bilirubin, Total 0.4 mg/dL (0.2-1.0); CO2 27.6 mmol/L (21.0-32.0); CREATININE 0.9 mg/dL (0.55-1.02); Calcium 8.7 mg/dL (8.5-10.1); Chloride 100 mmol/L (98-107); Glucose 178 mg/dL (74-106); Magnesium 1.8 mg/dL (1.8-2.4); Potassium 3.8 mmol/L (3.5-5.1); Sodium 137 mmol/L (136-145); Total Protein 7.3 g/dL (6.4-8.2)
[2022-06-21 10:28] LABS: CA 125 20 U/mL (<30)
== END 2022-07-06 23:59 | disposition home or self-care (01) ==
LOC: INF 02:08
PROVIDERS: PCP Family Medicine; Visit Provider Internal Medicine Medical Oncology
DX: Z45.2 Encounter for adjustment and management of vascular access device (principal); C56.9 Malignant neoplasm of unspecified ovary; Z29.8 Encounter for other specified prophylactic measures
CPT/HCPCS: 36591; 80053; 86304; 86900; 86901; 81003; 83735; 85025

== ENCOUNTER 2022-07-25 03:08 | Outpatient (RCR) | payer OTHER, SELFPAY ==
[2022-07-07 00:09] VITALS: BP 149/92; PULSE 84; RESP 16; TEMP 36.5
[2022-07-25] MEDS: Normal Saline Flush 10 ML SYR IVP (13:21)
[2022-07-25 13:43] LABS: Abs Immature Grans 0.01 10^3/uL (0.0-0.06); Absolute Basophil Count 0.02 10^3/uL (0.0-0.2); Absolute Eosinophil Count 0.05 10^3/uL (0.0-0.7); Absolute Lymphocyte Count 1.46 10^3/uL (1.2-3.4); Absolute Monocyte Count 0.46 10^3/uL (0.1-0.8); Absolute Neutrophil Count 4.16 10^3/uL (1.2-6.7); Basophils % 0.3; Eosinophils % 0.8; HCT 35.9 % (36.0-46.0); HGB 12.7 g/dL (11.2-15.7); Immature Grans % 0.2; Lymphocytes % 23.7; MCH 35.6 pg (27.0-33.0); MCHC 35.4 % (32.0-36.0); MCV 101 fL (80-95); MPV 9.8 fL (8.0-11.0); Monocytes % 7.5; Neutrophils % 67.5; Platelet Count 179 10^3/uL (130-400); RBC 3.57 10^6/uL (3.93-5.22); RDW-SD 51.3 fL; WBC 6.16 10^3/uL (4.4-10.8)
[2022-07-25 14:08] LABS: ALT 31 U/L (14-59); AST 34 U/L (15-37); Albumin 3.7 g/dL (3.4-5.0); Alkaline Phosphatase 60 U/L (46-116); Anion Gap 8.3 mmol/L (3-11); BUN 18 mg/dL (7-18); Bilirubin, Total 0.3 mg/dL (0.2-1.0); CO2 26.7 mmol/L (21.0-32.0); Calcium 8.8 mg/dL (8.5-10.1); Chloride 97 mmol/L (98-107); Estimated GFR 62.52 (mL/min/1.73m2); Glucose 201 mg/dL (74-106); Magnesium 1.7 mg/dL (1.8-2.4); Potassium 3.9 mmol/L (3.5-5.1); Sodium 132 mmol/L (136-145); Total Protein 7.2 g/dL (6.4-8.2)
[2022-07-25 15:38] LABS: Bilirubin Negative (Negative); Blood Negative (Negative); Clarity Clear (Clear); Glucose Negative (Negative); Ketones Negative (Negative); Leukocyte Esterase Negative (Negative); Nitrite Negative (Negative); Urobilinogen 0.2 EU/dL (Up TO 0.2)
[2022-07-26 09:52] LABS: CA 125 71 U/mL (<30)
== END 2022-08-05 23:59 | disposition home or self-care (01) ==
LOC: INF 03:08
PROVIDERS: PCP Family Medicine; Visit Provider Internal Medicine Medical Oncology
DX: Z45.2 Encounter for adjustment and management of vascular access device (principal); C78.6 Secondary malignant neoplasm of retroperitoneum and peritoneum; C56.9 Malignant neoplasm of unspecified ovary
CPT/HCPCS: 36591; 80053; 86304; 81003; 81015; 83735; 85025

== ENCOUNTER 2022-09-05 02:36 | Outpatient (RCR) | payer OTHER, SELFPAY ==
[2022-08-06 00:19] VITALS: BP 149/92; PULSE 84; RESP 16; TEMP 36.5
[2022-08-15] MEDS: Normal Saline Flush 10 ML SYR IVP (13:10)
[2022-08-15 13:24] LABS: Abs Immature Grans 0.02 10^3/uL (0.0-0.06); Absolute Basophil Count 0.02 10^3/uL (0.0-0.2); Absolute Eosinophil Count 0.06 10^3/uL (0.0-0.7); Absolute Lymphocyte Count 2.04 10^3/uL (1.2-3.4); Absolute Monocyte Count 0.56 10^3/uL (0.1-0.8); Basophils % 0.3; Eosinophils % 0.8; HCT 38.8 % (36.0-46.0); HGB 13.5 g/dL (11.2-15.7); Immature Grans % 0.3; Lymphocytes % 27.6; MCH 34.5 pg (27.0-33.0); MCHC 34.8 % (32.0-36.0); MCV 99 fL (80-95); MPV 9.4 fL (8.0-11.0); Monocytes % 7.6; Neutrophils % 63.4; Platelet Count 176 10^3/uL (130-400); RBC 3.91 10^6/uL (3.93-5.22); RDW 13.3 % (11.7-14.6); RDW-SD 49.1 fL
[2022-08-15 13:26] LABS: Bilirubin Negative (Negative); Blood Negative (Negative); Clarity Clear (Clear); Glucose Negative (Negative); Ketones Negative (Negative); Leukocyte Esterase Negative (Negative); Nitrite Negative (Negative); Specific Gravity 1.015 (1.005-1.025); Urobilinogen 0.2 EU/dL (Up TO 0.2)
[2022-08-15 13:48] LABS: ALT 30 U/L (14-59); AST 29 U/L (15-37); Albumin 4.1 g/dL (3.4-5.0); Alkaline Phosphatase 66 U/L (46-116); Anion Gap 9.1 mmol/L (3-11); BUN 17 mg/dL (7-18); Bilirubin, Total 0.3 mg/dL (0.2-1.0); CO2 28.9 mmol/L (21.0-32.0); Calcium 9.6 mg/dL (8.5-10.1); Chloride 96 mmol/L (98-107); Estimated GFR 62.52 (mL/min/1.73m2); Glucose 144 mg/dL (74-106); Magnesium 1.6 mg/dL (1.8-2.4); Potassium 4.3 mmol/L (3.5-5.1); Sodium 134 mmol/L (136-145); Total Protein 7.8 g/dL (6.4-8.2)
[2022-08-16 13:32] LABS: CA 125 82 U/mL (<30)
[2022-09-05] MEDS: Normal Saline Flush 10 ML SYR IVP (12:39)
[2022-09-05 12:49] LABS: Abs Immature Grans 0.01 10^3/uL (0.0-0.06); Absolute Basophil Count 0.02 10^3/uL (0.0-0.2); Absolute Eosinophil Count 0.04 10^3/uL (0.0-0.7); Absolute Lymphocyte Count 1.76 10^3/uL (1.2-3.4); Absolute Monocyte Count 0.48 10^3/uL (0.1-0.8); Absolute Neutrophil Count 3.62 10^3/uL (1.2-6.7); Basophils % 0.3; Eosinophils % 0.7; HCT 38.9 % (36.0-46.0); HGB 13.5 g/dL (11.2-15.7); Immature Grans % 0.2; Lymphocytes % 29.7; MCH 34.4 pg (27.0-33.0); MCHC 34.7 % (32.0-36.0); MCV 99 fL (80-95); MPV 9.6 fL (8.0-11.0); Monocytes % 8.1; Platelet Count 165 10^3/uL (130-400); RBC 3.93 10^6/uL (3.93-5.22); RDW 13.3 % (11.7-14.6); RDW-SD 49.2 fL; WBC 5.93 10^3/uL (4.4-10.8)
[2022-09-05 12:51] LABS: Bilirubin Negative (Negative); Blood Negative (Negative); Clarity Clear (Clear); Glucose Negative (Negative); Ketones Negative (Negative); Leukocyte Esterase Negative (Negative); Nitrite Negative (Negative); Urobilinogen 0.2 EU/dL (Up TO 0.2); pH 6.5 (5-8)
[2022-09-05 13:09] LABS: ALT 25 U/L (14-59); AST 23 U/L (15-37); Alkaline Phosphatase 62 U/L (46-116); Anion Gap 9.6 mmol/L (3-11); BUN 18 mg/dL (7-18); Bilirubin, Total 0.3 mg/dL (0.2-1.0); CO2 27.4 mmol/L (21.0-32.0); CREATININE 0.9 mg/dL (0.55-1.02); Calcium 9.4 mg/dL (8.5-10.1); Chloride 99 mmol/L (98-107); Estimated GFR 70.95 (mL/min/1.73m2); Glucose 164 mg/dL (74-106); Magnesium 1.7 mg/dL (1.8-2.4); Potassium 4.2 mmol/L (3.5-5.1); Sodium 136 mmol/L (136-145); Total Protein 7.7 g/dL (6.4-8.2)
[2022-09-06 20:44] LABS: CA 125 65 U/mL (<30)
== END 2022-09-05 23:59 | disposition home or self-care (01) ==
LOC: INF 02:36
PROVIDERS: PCP Family Medicine; Visit Provider Internal Medicine Medical Oncology
DX: C57.01 Malignant neoplasm of right fallopian tube (principal); Z45.2 Encounter for adjustment and management of vascular access device
CPT/HCPCS: 36591; 80053; 86304; 96372; Q0221; 81003; 83735; 85025

== ENCOUNTER → 2022-09-16 00:07 | Outpatient (CLI) | payer OTHER, SELFPAY ==
--- NOTE | 2022-09-16 10:55 | DI.DEXA_ITS ---
Exam(s) XR DEXA BONE DENSITY W/WO AZUL EXAM: XR DEXA BONE DENSITY W/WO AZUL CLINICAL HISTORY: POSTMENOPAUSAL Z78.0, SCREENING FOR OSTEOPOROSIS, PREVENTATIVE VISIT Z00.00 TECHNIQUE: Routine DEXA evaluation of the lumbar spine, hip, or forearm. COMPARISON: No exams were available for comparison FINDINGS: Performed on a Hologic unit. Lateral image: No compression fracture evident. Lumbar Spine total T-score: -2.3 Hip total T-score:-1.0 Independent reading at the level of the femoral neck yields at T-score -2.0. Forearm total T-score: 0.1 IMPRESSION: Bone mineral density measures in the osteopenia range. Fracture risk is moderate. Note: Any spine fracture indicates 5x risk for subsequent spine fracture and 2x risk for subsequent h ip fracture. World Health Organization criteria for BMD interpretation classify patients: Normal...... T- Score at or above -1.0 Osteopenic... T- Score between -1.0 and -2.5 Osteoporosis... T-Score at or below -2.5
== END ==
PROVIDERS: PCP Family Medicine; Visit Provider Family Medicine
DX: Z13.820 Encounter for screening for osteoporosis (principal); Z78.0 Asymptomatic menopausal state; M85.89 Other specified disorders of bone density and structure, multiple sites
CPT/HCPCS: 77080

== ENCOUNTER 2022-09-28 02:23 | Outpatient (RCR) | payer OTHER, SELFPAY ==
[2022-09-06 00:19] VITALS: BP 149/92; PULSE 84; RESP 16; TEMP 36.5
[2022-09-28] MEDS: Normal Saline Flush 10 ML SYR IVP (08:16)
[2022-09-28 08:29] LABS: Abs Immature Grans 0.01 10^3/uL (0.0-0.06); Absolute Basophil Count 0.03 10^3/uL (0.0-0.2); Absolute Eosinophil Count 0.06 10^3/uL (0.0-0.7); Absolute Lymphocyte Count 1.71 10^3/uL (1.2-3.4); Absolute Monocyte Count 0.57 10^3/uL (0.1-0.8); Absolute Neutrophil Count 2.44 10^3/uL (1.2-6.7); Basophils % 0.6; Eosinophils % 1.2; HCT 38.6 % (36.0-46.0); HGB 13.2 g/dL (11.2-15.7); Immature Grans % 0.2; Lymphocytes % 35.5; MCHC 34.2 % (32.0-36.0); MCV 100 fL (80-95); MPV 9.7 fL (8.0-11.0); Monocytes % 11.8; Neutrophils % 50.7; Platelet Count 192 10^3/uL (130-400); RBC 3.88 10^6/uL (3.93-5.22); RDW 14.1 % (11.7-14.6); RDW-SD 51.5 fL; WBC 4.82 10^3/uL (4.4-10.8)
[2022-09-28 08:33] LABS: Bilirubin Negative (Negative); Blood Negative (Negative); Clarity Clear (Clear); Glucose Negative (Negative); Ketones Negative (Negative); Leukocyte Esterase Trace (Negative); Nitrite Negative (Negative); Urobilinogen 0.2 EU/dL (Up TO 0.2)
[2022-09-28 08:50] LABS: ALT 25 U/L (14-59); AST 29 U/L (15-37); Albumin 3.9 g/dL (3.4-5.0); Alkaline Phosphatase 57 U/L (46-116); Anion Gap 6.3 mmol/L (3-11); BUN 14 mg/dL (7-18); Bilirubin, Total 0.6 mg/dL (0.2-1.0); CO2 27.7 mmol/L (21.0-32.0); CREATININE 0.9 mg/dL (0.55-1.02); Calcium 8.8 mg/dL (8.5-10.1); Chloride 99 mmol/L (98-107); Estimated GFR 70.95 (mL/min/1.73m2); Glucose 123 mg/dL (74-106); Magnesium 1.7 mg/dL (1.8-2.4); Potassium 4.4 mmol/L (3.5-5.1); Sodium 133 mmol/L (136-145); Total Protein 7.4 g/dL (6.4-8.2)
[2022-09-29 10:06] LABS: CA 125 80 U/mL (<30)
== END 2022-10-05 23:59 | disposition home or self-care (01) ==
LOC: INF 02:23
PROVIDERS: PCP Family Medicine; Visit Provider Internal Medicine Medical Oncology
DX: C78.6 Secondary malignant neoplasm of retroperitoneum and peritoneum (principal); C57.01 Malignant neoplasm of right fallopian tube; Z45.2 Encounter for adjustment and management of vascular access device
CPT/HCPCS: 36591; 80053; 86304; 81003; 83735; 85025

== ENCOUNTER 2022-10-17 02:57 | Outpatient (RCR) | payer OTHER, SELFPAY ==
[2022-10-06 00:08] VITALS: BP 149/92; PULSE 84; RESP 16; TEMP 36.5
[2022-10-17] MEDS: Normal Saline Flush 10 ML SYR IVP (13:10)
[2022-10-17 13:23] LABS: Abs Immature Grans 0.01 10^3/uL (0.0-0.06); Absolute Basophil Count 0.03 10^3/uL (0.0-0.2); Absolute Eosinophil Count 0.06 10^3/uL (0.0-0.7); Absolute Lymphocyte Count 1.87 10^3/uL (1.2-3.4); Absolute Neutrophil Count 3.94 10^3/uL (1.2-6.7); Basophils % 0.5; Eosinophils % 0.9; HCT 37.6 % (36.0-46.0); HGB 12.9 g/dL (11.2-15.7); Immature Grans % 0.2; Lymphocytes % 29.2; MCH 34.8 pg (27.0-33.0); MCHC 34.3 % (32.0-36.0); MCV 101 fL (80-95); MPV 9.5 fL (8.0-11.0); Monocytes % 7.8; Neutrophils % 61.4; Platelet Count 193 10^3/uL (130-400); RBC 3.71 10^6/uL (3.93-5.22); RDW 15.1 % (11.7-14.6); RDW-SD 56.9 fL; WBC 6.41 10^3/uL (4.4-10.8)
[2022-10-17 13:25] LABS: Bilirubin Negative (Negative); Blood Negative (Negative); Clarity Clear (Clear); Glucose Negative (Negative); Ketones Negative (Negative); Leukocyte Esterase Negative (Negative); Nitrite Negative (Negative); Urobilinogen 0.2 EU/dL (Up TO 0.2)
[2022-10-17 13:37] LABS: ALT 24 U/L (14-59); AST 26 U/L (15-37); Albumin 3.9 g/dL (3.4-5.0); Alkaline Phosphatase 64 U/L (46-116); Anion Gap 7.7 mmol/L (3-11); BUN 14 mg/dL (7-18); Bilirubin, Total 0.4 mg/dL (0.2-1.0); CO2 27.3 mmol/L (21.0-32.0); CREATININE 0.9 mg/dL (0.55-1.02); Chloride 98 mmol/L (98-107); Estimated GFR 70.95 (mL/min/1.73m2); Glucose 145 mg/dL (74-106); Magnesium 1.8 mg/dL (1.8-2.4); Potassium 3.8 mmol/L (3.5-5.1); Sodium 133 mmol/L (136-145); Total Protein 7.4 g/dL (6.4-8.2)
[2022-10-18 12:50] LABS: CA 125 88 U/mL (<30)
== END 2022-11-05 23:59 | disposition home or self-care (01) ==
LOC: INF 02:57
PROVIDERS: PCP Family Medicine; Visit Provider Internal Medicine Medical Oncology
DX: C57.01 Malignant neoplasm of right fallopian tube (principal); C78.6 Secondary malignant neoplasm of retroperitoneum and peritoneum; Z45.2 Encounter for adjustment and management of vascular access device
CPT/HCPCS: 36591; 80053; 86304; 81003; 83735; 85025

== ENCOUNTER 2022-11-28 02:09 | Outpatient (RCR) | payer BC, SELFPAY ==
[2022-11-06 00:05] VITALS: BP 149/92; PULSE 84; RESP 16; TEMP 36.5
[2022-11-09 08:30] LABS: Abs Immature Grans 0.04 10^3/uL (0.0-0.06); Absolute Basophil Count 0.05 10^3/uL (0.0-0.2); Absolute Eosinophil Count 0.05 10^3/uL (0.0-0.7); Absolute Monocyte Count 0.98 10^3/uL (0.1-0.8); Absolute Neutrophil Count 6.38 10^3/uL (1.2-6.7); Basophils % 0.6; Eosinophils % 0.6; HCT 37.3 % (36.0-46.0); HGB 12.8 g/dL (11.2-15.7); Immature Grans % 0.4; Lymphocytes % 16.7; MCH 35.4 pg (27.0-33.0); MCHC 34.3 % (32.0-36.0); MCV 103 fL (80-95); MPV 8.9 fL (8.0-11.0); Monocytes % 10.9; Neutrophils % 70.8; Platelet Count 226 10^3/uL (130-400); RBC 3.62 10^6/uL (3.93-5.22); RDW 15.7 % (11.7-14.6); RDW-SD 59.7 fL
[2022-11-09 08:32] LABS: Bilirubin Negative (Negative); Blood Negative (Negative); Clarity Clear (Clear); Glucose Negative (Negative); Ketones Negative (Negative); Leukocyte Esterase Negative (Negative); Nitrite Negative (Negative); Urobilinogen 0.2 EU/dL (Up TO 0.2)
[2022-11-09] MEDS: Normal Saline Flush 10 ML SYR IVP (08:35)
[2022-11-09 08:46] LABS: ALT 17 U/L (14-59); AST 19 U/L (15-37); Albumin 3.5 g/dL (3.4-5.0); Alkaline Phosphatase 72 U/L (46-116); BUN 14 mg/dL (7-18); Bilirubin, Total 0.6 mg/dL (0.2-1.0); CREATININE 0.9 mg/dL (0.55-1.02); Calcium 9.3 mg/dL (8.5-10.1); Chloride 97 mmol/L (98-107); Estimated GFR 70.95 (mL/min/1.73m2); Glucose 123 mg/dL (74-106); Magnesium 1.8 mg/dL (1.8-2.4); Sodium 133 mmol/L (136-145); Total Protein 7.9 g/dL (6.4-8.2)
[2022-11-10 11:33] LABS: CA 125 116 U/mL (<30)
[2022-11-28] MEDS: Normal Saline Flush 10 ML SYR IVP (10:34)
[2022-11-28 10:44] LABS: Abs Immature Grans 0.01 10^3/uL (0.0-0.06); Absolute Basophil Count 0.03 10^3/uL (0.0-0.2); Absolute Eosinophil Count 0.05 10^3/uL (0.0-0.7); Absolute Monocyte Count 0.61 10^3/uL (0.1-0.8); Absolute Neutrophil Count 3.06 10^3/uL (1.2-6.7); Basophils % 0.6; HCT 35.9 % (36.0-46.0); HGB 12.4 g/dL (11.2-15.7); Immature Grans % 0.2; Lymphocytes % 28.5; MCH 35.9 pg (27.0-33.0); MCHC 34.5 % (32.0-36.0); MCV 104 fL (80-95); MPV 9.3 fL (8.0-11.0); Monocytes % 11.6; Neutrophils % 58.1; Platelet Count 225 10^3/uL (130-400); RBC 3.45 10^6/uL (3.93-5.22); RDW-SD 61.9 fL; WBC 5.26 10^3/uL (4.4-10.8)
[2022-11-28 10:46] LABS: Bilirubin Negative (Negative); Blood Negative (Negative); Clarity Clear (Clear); Glucose Negative (Negative); Ketones Negative (Negative); Leukocyte Esterase Trace (Negative); Nitrite Negative (Negative); Specific Gravity 1.015 (1.005-1.025); Urobilinogen 0.2 EU/dL (Up TO 0.2); pH 6.5 (5-8)
[2022-11-28 11:02] LABS: ALT 19 U/L (14-59); AST 25 U/L (15-37); Albumin 3.8 g/dL (3.4-5.0); Alkaline Phosphatase 68 U/L (46-116); Anion Gap 8.8 mmol/L (3-11); BUN 16 mg/dL (7-18); Bilirubin, Total 0.5 mg/dL (0.2-1.0); CO2 27.2 mmol/L (21.0-32.0); CREATININE 0.8 mg/dL (0.55-1.02); Calcium 9.3 mg/dL (8.5-10.1); Chloride 98 mmol/L (98-107); Estimated GFR 81.72 (mL/min/1.73m2); Glucose 97 mg/dL (74-106); Magnesium 1.7 mg/dL (1.8-2.4); Potassium 4.3 mmol/L (3.5-5.1); Sodium 134 mmol/L (136-145); Total Protein 7.6 g/dL (6.4-8.2)
[2022-11-29 09:49] LABS: CA 125 169 U/mL (<30)
== END 2022-12-06 23:59 | disposition home or self-care (01) ==
LOC: INF 02:09
PROVIDERS: PCP Family Medicine; Visit Provider Internal Medicine Medical Oncology
DX: Z45.2 Encounter for adjustment and management of vascular access device (principal); C57.01 Malignant neoplasm of right fallopian tube; C78.6 Secondary malignant neoplasm of retroperitoneum and peritoneum
CPT/HCPCS: 36591; 80053; 86304; 81003; 83735; 85025

== ENCOUNTER 2022-12-19 00:41 | Outpatient (RCR) | payer BC, SELFPAY ==
[2022-12-07 00:04] VITALS: BP 149/92; PULSE 84; RESP 16; TEMP 36.5
[2022-12-19] MEDS: Normal Saline Flush 10 ML SYR IVP (13:11)
[2022-12-19 13:20] LABS: Abs Immature Grans 0.02 10^3/uL (0.0-0.06); Absolute Basophil Count 0.03 10^3/uL (0.0-0.2); Absolute Eosinophil Count 0.06 10^3/uL (0.0-0.7); Absolute Lymphocyte Count 1.94 10^3/uL (1.2-3.4); Absolute Monocyte Count 0.53 10^3/uL (0.1-0.8); Absolute Neutrophil Count 4.59 10^3/uL (1.2-6.7); Basophils % 0.4; Eosinophils % 0.8; HCT 39.3 % (36.0-46.0); HGB 13.4 g/dL (11.2-15.7); Immature Grans % 0.3; Lymphocytes % 27.1; MCH 35.8 pg (27.0-33.0); MCHC 34.1 % (32.0-36.0); MCV 105 fL (80-95); MPV 9.4 fL (8.0-11.0); Monocytes % 7.4; Nucleated RBC 0.3 % (0.0-0.3); Platelet Count 188 10^3/uL (130-400); RBC 3.74 10^6/uL (3.93-5.22); RDW 15.6 % (11.7-14.6); RDW-SD 60.5 fL; WBC 7.17 10^3/uL (4.4-10.8)
[2022-12-19 13:24] LABS: Bilirubin Negative (Negative); Blood Negative (Negative); Clarity Sl Cloudy (Clear); Glucose Negative (Negative); Ketones Negative (Negative); Leukocyte Esterase Small (Negative); Nitrite Negative (Negative); Specific Gravity 1.015 (1.005-1.025); Urobilinogen 0.2 EU/dL (Up TO 0.2)
[2022-12-19 13:34] LABS: ALT 19 U/L (14-59); AST 25 U/L (15-37); Alkaline Phosphatase 71 U/L (46-116); Anion Gap 9.2 mmol/L (3-11); BUN 13 mg/dL (7-18); Bilirubin, Total 0.5 mg/dL (0.2-1.0); CO2 26.8 mmol/L (21.0-32.0); CREATININE 0.9 mg/dL (0.55-1.02); Chloride 99 mmol/L (98-107); Diff Comment Diff Reviewed; Estimated GFR 70.95 (mL/min/1.73m2); Glucose 160 mg/dL (74-106); Macrocytosis 1+; Magnesium 1.9 mg/dL (1.8-2.4); Potassium 3.8 mmol/L (3.5-5.1); Sodium 135 mmol/L (136-145); Total Protein 7.4 g/dL (6.4-8.2)
[2022-12-20 14:33] LABS: CA 125 277 U/mL (<30)
== END 2023-01-03 23:59 | disposition home or self-care (01) ==
LOC: INF 00:41
PROVIDERS: PCP Family Medicine; Visit Provider Internal Medicine Medical Oncology
DX: C57.01 Malignant neoplasm of right fallopian tube (principal); C78.6 Secondary malignant neoplasm of retroperitoneum and peritoneum; Z45.2 Encounter for adjustment and management of vascular access device
CPT/HCPCS: 36591; 80053; 86304; 81003; 83735; 85025

== ENCOUNTER 2023-01-30 02:09 | Outpatient (RCR) | payer BC, SELFPAY ==
[2023-01-04 00:12] VITALS: BP 149/92; PULSE 84; RESP 16; TEMP 36.5
[2023-01-09] MEDS: Normal Saline Flush 10 ML SYR IVP (09:11)
[2023-01-09 09:33] LABS: Abs Immature Grans 0.02 10^3/uL (0.0-0.06); Absolute Basophil Count 0.03 10^3/uL (0.0-0.2); Absolute Eosinophil Count 0.03 10^3/uL (0.0-0.7); Absolute Lymphocyte Count 1.56 10^3/uL (1.2-3.4); Absolute Monocyte Count 0.49 10^3/uL (0.1-0.8); Absolute Neutrophil Count 3.18 10^3/uL (1.2-6.7); Basophils % 0.6; Eosinophils % 0.6; HCT 38.3 % (36.0-46.0); HGB 13.2 g/dL (11.2-15.7); Immature Grans % 0.4; Lymphocytes % 29.4; MCH 36.5 pg (27.0-33.0); MCHC 34.5 % (32.0-36.0); MCV 106 fL (80-95); MPV 9.5 fL (8.0-11.0); Monocytes % 9.2; Neutrophils % 59.8; Platelet Count 189 10^3/uL (130-400); RBC 3.62 10^6/uL (3.93-5.22); RDW 15.3 % (11.7-14.6); RDW-SD 60.1 fL; WBC 5.31 10^3/uL (4.4-10.8)
[2023-01-09 09:50] LABS: ALT 24 U/L (14-59); AST 24 U/L (15-37); Albumin 3.8 g/dL (3.4-5.0); Alkaline Phosphatase 61 U/L (46-116); Anion Gap 8.2 mmol/L (3-11); BUN 12 mg/dL (7-18); Bacteria Rare HPF (Negative); Bilirubin, Total 0.5 mg/dL (0.2-1.0); C & S Indicated? No; CO2 27.8 mmol/L (21.0-32.0); CREATININE 0.8 mg/dL (0.55-1.02); Calcium 9.4 mg/dL (8.5-10.1); Casts Negative LPF (Negative); Chloride 101 mmol/L (98-107); Crystals Negative HPF (Negative); Epithelial Cells Rare HPF (Negative); Estimated GFR 81.72 (mL/min/1.73m2); Glucose 101 mg/dL (74-106); Magnesium 1.8 mg/dL (1.8-2.4); Mucus Negative (Negative); Potassium 4.5 mmol/L (3.5-5.1); RBC 0-2 HPF (0-2); Sodium 137 mmol/L (136-145); Total Protein 7.2 g/dL (6.4-8.2); WBC 0-2 HPF (0-5)
[2023-01-09 10:24] LABS: Bilirubin Negative (Negative); Blood Negative (Negative); Clarity Clear (Clear); Glucose Negative (Negative); Ketones Trace mg/dL (Negative); Leukocyte Esterase Negative (Negative); Nitrite Negative (Negative); Specific Gravity 1.015 (1.005-1.025); Urobilinogen 0.2 mg/dL (Up to 0.2)
[2023-01-10 11:14] LABS: CA 125 388 U/mL (<30)
[2023-01-30] MEDS: Normal Saline Flush 10 ML SYR IVP (13:15)
[2023-01-30 13:30] LABS: Abs Immature Grans 0.02 10^3/uL (0.0-0.06); Absolute Basophil Count 0.02 10^3/uL (0.0-0.2); Absolute Eosinophil Count 0.05 10^3/uL (0.0-0.7); Absolute Lymphocyte Count 1.73 10^3/uL (1.2-3.4); Absolute Monocyte Count 0.59 10^3/uL (0.1-0.8); Basophils % 0.3; Eosinophils % 0.7; HCT 37.4 % (36.0-46.0); Immature Grans % 0.3; Lymphocytes % 24.3; MCH 36.4 pg (27.0-33.0); MCHC 34.8 % (32.0-36.0); MCV 105 fL (80-95); MPV 9.5 fL (8.0-11.0); Monocytes % 8.3; Neutrophils % 66.1; Nucleated RBC 0.3 % (0.0-0.3); Platelet Count 214 10^3/uL (130-400); RBC 3.57 10^6/uL (3.93-5.22); RDW 14.5 % (11.7-14.6); RDW-SD 56.5 fL; WBC 7.11 10^3/uL (4.4-10.8)
[2023-01-30 14:07] LABS: ALT 24 U/L (14-59); AST 25 U/L (15-37); Albumin 3.7 g/dL (3.4-5.0); Alkaline Phosphatase 72 U/L (46-116); Anion Gap 6.4 mmol/L (3-11); BUN 17 mg/dL (7-18); Bilirubin, Total 0.3 mg/dL (0.2-1.0); CO2 28.6 mmol/L (21.0-32.0); CREATININE 0.9 mg/dL (0.55-1.02); Calcium 9.4 mg/dL (8.5-10.1); Chloride 101 mmol/L (98-107); Estimated GFR 70.95 (mL/min/1.73m2); Glucose 160 mg/dL (74-106); Magnesium 1.9 mg/dL (1.8-2.4); Potassium 4.2 mmol/L (3.5-5.1); Sodium 136 mmol/L (136-145); Total Protein 7.1 g/dL (6.4-8.2)
[2023-02-01 14:30] LABS: CA 125 934 U/mL (<30)
== END 2023-02-03 23:59 | disposition home or self-care (01) ==
LOC: INF 02:09
PROVIDERS: PCP Family Medicine; Visit Provider Internal Medicine Medical Oncology
DX: Z45.2 Encounter for adjustment and management of vascular access device (principal); C57.01 Malignant neoplasm of right fallopian tube
CPT/HCPCS: 36591; 80053; 86304; 81003; 81015; 83735; 85025

== ENCOUNTER 2023-03-27 18:22 | Observation (INO) | payer BC, SELFPAY ==
[2023-03-27 18:27] VITALS: BP 168/93; PULSE 90; RESP 18; TEMP 37.8; O2SAT 98
--- NOTE | 2023-03-27 18:29 | W.ED.GENAD ---
Discharge Plan Disposition Patient Disposition: Admit to [facility] Condition: Stable Discharge Details Clinical Impression: Neutropenic fever, History of ovarian cancer Admit Date/Time: 03/27/23 20:47 Admit Provider: Joel Lozada Attending Provider: Joel Lozada Primary Care Provider: Cammy Alfaro ED Provider: Sangeeta Person Medical Decision Making 1839 -- 67-year-old female with a history of ovarian cancer status post last chemotherapy treatment on March 17 presents for fever today. Patient appears comfortable and nontoxic. Her oral temp was 100. Her rectal temp was 101.5. Her blood pressure initially was moderately hypertensive but has improved now. She has small pustules noted within the left perineum/buttock area which appear potentially consistent with a folliculitis. Also consider shingles. She does report that she rode her bike yesterday so suspect more likely bacterial infection from sweating. Either way, do not suspect this is the source of her fever. She has no cough or shortness of breath to suggest pneumonia. She has no GI symptoms or abdominal pain or tenderness to suggest gastrointestinal etiology. She has no urinary symptoms to suggest UTI. She has no meningeal signs to suggest meningitis. Will obtain screening labs, FLUVID, urinalysis and chest x-ray and contact [facility] oncology. 1944 --Labs reviewed. White blood cell count 1.93, ANC 0.02. Labs from [facility] on 03/17 noted an ANC of 5.7. Her lactate is 0.5. Her magnesium was 1.6 which was repleted. Urinalysis negative. FLUVID negative. Chest x-ray not yet obtained. 2004 --Case discussed with patient's oncologist at [facility] Dr. Morgan Alston --recommends admission with plan for Neupogen 300 mcg once daily until ANC greater than 1.5. Recommends broad spectrum coverage with vancomycin and Zosyn. 2029 --Case discussed with Dr. Lozada who accepts patient for admission. Medical Records Medical records reviewed: Yes I reviewed the patient's medical records. Imaging Data Radiologic Study: Radiologist's impression: XR Chest Exam date and time: 03/27/2023 8:57 PM Age: 67 years old Clinical indication: Other: Fever, recent chemo, R/O pneumonia; Prior surgery; Surgery date: 6+ months; Surgery type: Port placed TECHNIQUE: Imaging protocol: Radiologic exam of the chest. Views: 1 view. COMPARISON: CT CHEST W 06/30/2021 2:40 PM FINDINGS: Tubes, catheters and devices: Monitoring wires noted. Right internal jugular Port-A-Cath is present, tip proximal superior vena cava. Lungs: Unremarkable. No consolidation. Pleural spaces: Unremarkable. No pleural effusion. No pneumothorax. Heart/Mediastinum: Unremarkable. No cardiomegaly. Bones/joints: Unremarkable. IMPRESSION: No acute cardiopulmonary abnormality. Lab Data Lab results reviewed: Yes I reviewed the patient's lab results. Labs: 03/27/23 20:27 Blood Blood Culture - Pending 03/27/23 18:53 Blood Blood Culture - Pending Laboratory Tests Range/Units 03/27/23 03/27/23 03/27/23 18:53 18:53 18:53 WBC (4.4-10.8) 10^3/uL 1.93 L* RBC (3.93-5.22) 10^6/uL 3.29 L Hgb (11.2-15.7) g/dL 11.5 Hct (36.0-46.0) % 33.7 L MCV (80-95) fL 102 H MCH (27.0-33.0) pg 35.0 H MCHC (32.0-36.0) % 34.1 RDW (11.7-14.6) % 13.6 Plt Count (130-400) 10^3/uL 134 MPV (8.0-11.0) fL 9.4 Immature Gran % 0.0 Neutrophils % 1.0 Lymphocytes % 75.0 Atypical Lymphs % 6 Monocytes % 18.0 Eosinophils % 0.0 Basophils % 0.0 Nucleated RBC % (0.0-0.3) % 0.0 Absolute Neutrophils (1.2-6.7) 10^3/uL 0.02 L* Absolute Lymphocytes (1.2-3.4) 10^3/uL 1.56 Absolute Monocytes (0.1-0.8) 10^3/uL 0.35 Absolute Eosinophils (0.0-0.7) 10^3/uL 0.00 Absolute Basophils (0.0-0.2) 10^3/uL 0.00 RBC Morphology See Below Anisocytosis 1+ VBG Lactate (0.6-1.4) mmol/L 0.5 L Sodium (136-145) mmol/L 132 L Potassium (3.5-5.1) mmol/L 3.6 Chloride (98-107) mmol/L 100 Carbon Dioxide (21.0-32.0) mmol/L 24.5 Anion Gap (3-11) mmol/L 7.5 BUN (7-18) mg/dL 13 Creatinine (0.55-1.02) mg/dL 0.7 Est GFR (CKD-EPI 2020) (mL/min/1.73m2) 95.92 Glucose (74-106) mg/dL 106 Calcium (8.5-10.1) mg/dL 8.6 Magnesium (1.8-2.4) mg/dL 1.6 L Total Bilirubin (0.2-1.0) mg/dL 0.2 AST (15-37) U/L 32 ALT (14-59) U/L 40 Alkaline Phosphatase (46-116) U/L 68 Troponin I (<or=60) ng/L < 50 Total Protein (6.4-8.2) g/dL 6.6 Albumin (3.4-5.0) g/dL 3.1 L Urine Color (Yellow) Urine Clarity (Clear) Urine pH (5-8) Ur Specific [place] (1.005-1.025) Urine Protein (Negative) mg/dL Urine Ketones (Negative) mg/dL Urine Blood (Negative) Urine Nitrite (Negative) Urine Bilirubin (Negative) Urine Urobilinogen (Up to 0.2) mg/dL Ur Leukocyte Esterase (Negative) Urine Glucose (Negative) mg/dL COVID-19 Source SARS-CoV-2 (PCR) (Negative) Influenza Type A (PCR) (Negative) Influenza Type B (PCR) (Negative) RSV (PCR) (Negative) Range/Units 03/27/23 03/27/23 18:56 19:44 WBC (4.4-10.8) 10^3/uL RBC (3.93-5.22) 10^6/uL Hgb (11.2-15.7) g/dL Hct (36.0-46.0) % MCV (80-95) fL MCH (27.0-33.0) pg MCHC (32.0-36.0) % RDW (11.7-14.6) % Plt Count (130-400) 10^3/uL MPV (8.0-11.0) fL Immature Gran % Neutrophils % Lymphocytes % Atypical Lymphs % Monocytes % Eosinophils % Basophils % Nucleated RBC % (0.0-0.3) % Absolute Neutrophils (1.2-6.7) 10^3/uL Absolute Lymphocytes (1.2-3.4) 10^3/uL Absolute Monocytes (0.1-0.8) 10^3/uL Absolute Eosinophils (0.0-0.7) 10^3/uL Absolute Basophils (0.0-0.2) 10^3/uL RBC Morphology Anisocytosis VBG Lactate (0.6-1.4) mmol/L Sodium (136-145) mmol/L Potassium (3.5-5.1) mmol/L Chloride (98-107) mmol/L Carbon Dioxide (21.0-32.0) mmol/L Anion Gap (3-11) mmol/L BUN (7-18) mg/dL Creatinine (0.55-1.02) mg/dL Est GFR (CKD-EPI 2020) (mL/min/1.73m2) Glucose (74-106) mg/dL Calcium (8.5-10.1) mg/dL Magnesium (1.8-2.4) mg/dL Total Bilirubin (0.2-1.0) mg/dL AST (15-37) U/L ALT (14-59) U/L Alkaline Phosphatase (46-116) U/L Troponin I (<or=60) ng/L Total Protein (6.4-8.2) g/dL Albumin (3.4-5.0) g/dL Urine Color (Yellow) Yellow Urine Clarity (Clear) Clear Urine pH (5-8) 6.5 Ur Specific [place] (1.005-1.025) 1.015 Urine Protein (Negative) mg/dL Negative Urine Ketones (Negative) mg/dL Negative Urine Blood (Negative) Negative Urine Nitrite (Negative) Negative Urine Bilirubin (Negative) Negative Urine Urobilinogen (Up to 0.2) mg/dL 0.2 Ur Leukocyte Esterase (Negative) Negative Urine Glucose (Negative) mg/dL Negative COVID-19 Source Nasopharynx SARS-CoV-2 (PCR) (Negative) Negative Influenza Type A (PCR) (Negative) Negative Influenza Type B (PCR) (Negative) Negative RSV (PCR) (Negative) Negative ECG Data Attestation: I personally reviewed and interpreted this ECG (s) as follows: Interpretation: Rate of 70, sinus, normal axis, no STEMI HPI General Mode of arrival: ambulatory. Date/Time Provider Initiated Documentation: 03/27/23 18:26. Limitations to Documentation: no limitations. Information obtained by: patient. HPI Narrative: Patient is a 67-year-old female with history of ovarian cancer status post last chemotherapy treatment on March 17 presents for fever, body aches and chills today. Patient's is Dr. Huang and he reports that he called patient's oncologist Dr. Morgan Alston at [facility] and they advised that she come here for evaluation and blood work. Patient states she felt body aches, chills and diffuse headache today but otherwise has not had any symptoms of ear pain, sore throat, cough, chest pain, difficulty breathing, abdominal pain, nausea, vomiting, diarrhea, urinary symptoms or rash. Patient reports she did go for a bike ride yesterday and has felt a pimple in her left groin today. She states this area has become more painful today. She states she has received the shingles vaccine this year. Patient has not taken any Tylenol or Motrin today. Related Data Home Medications Medication Instructions Recorded Confirmed fluocinonide 0.05 % topical 60 g topical DAILY 12/05/14 03/27/23 ointment fluticasone propionate 50 50 mcg NS DAILY PRN 12/05/14 03/27/23 mcg/actuation nasal spray,suspension (Flonase) metronidazole 0.75 % (37.5 mg/5 37.5 mg topical BID PRN 12/05/14 03/27/23 gram) vaginal gel calcium carbonate 600 mg-vitamin 1 cap PO DAILY 09/29/20 03/27/23 D3 12.5 mcg (500 unit) capsule (Calcium 600 with Vitamin D3) acetaminophen 325 mg tablet 325 mg PO ONCE PRN 07/12/22 03/27/23 (Tylenol) ibuprofen 200 mg tablet 200 mg PO Q6H PRN 07/12/22 03/27/23 lidocaine-prilocaine 2.5 %-2.5 % 1 applic topical ONCE 07/12/22 03/27/23 topical cream lorazepam 0.5 mg tablet 0.5 mg PO TID PRN 07/12/22 03/27/23 ondansetron HCl 4 mg tablet 4 mg PO Q8H 07/12/22 03/27/23 prochlorperazine maleate 10 mg 10 mg PO BID PRN 07/12/22 03/27/23 tablet (Compazine) pyridoxine (vitamin B6) 100 mg 100 mg PO QID 07/12/22 03/27/23 tablet sennosides 8.6 mg tablet 8.6 mg PO DAILY 07/12/22 03/27/23 (Evac-U-Gen (sennosides)) Allergies Allergy/AdvReac Type Severity Reaction Status Date / Time Iodinated Contrast Media Allergy Intermediate Skin Rash Unverified 03/27/23 18:30 General Stated Complaint: Fever SRI: 3 Review of Systems All systems reviewed & are unremarkable except as noted in HPI and below Constitutional Constitutional: Reports as per HPI, Reports body ache(s), Reports chills, Reports fever(s) and Reports headache(s) Eyes Eyes: Denies blurry vision ENT Ears, Nose, Mouth, and Throat: Denies dizziness, Reports headache(s), Denies sore throat and Denies throat swelling Cardiovascular Cardiovascular: Denies chest pain and Denies dyspnea Respiratory Respiratory: Denies cough and Denies dyspnea Gastrointestinal Gastrointestinal: Denies abdominal pain, Denies diarrhea and Denies vomiting Genitourinary Genitourinary: Denies hematuria and Denies dysuria Musculoskeletal Musculoskeletal: Denies back pain and Denies numbness Integumentary/Breasts Skin/Breast: Denies lesions and Denies rash Neurologic Neurologic: Denies dizziness, Reports headache(s), Denies localized weakness and Denies numbness Allergic/Immunologic Allergic/Immunologic: Denies throat swelling PFSH All Active Problems (Updated 03/27/23 @ 22:51 by Joel Lozada) Hypomagnesemia (Acute) Discharge planning issues (Acute) DVT prophylaxis (Acute) Neutropenic fever (Acute) History of ovarian cancer (Acute) Mullerian mixed tumor (Acute) Screening for colon cancer (Acute) Seborrheic keratosis (Acute) Skin lesion of face (Acute) Medical History (Updated 03/27/23 @ 22:51 by Joel Lozada) Allergic rhinitis Basal cell carcinoma (BCC) of [place] nodular type. Margins clear-removed 2014 Hx of adenomatous colonic polyps Tubular and sessile serrated- 2018 Seborrheic dermatitis Surgical History (Updated 09/29/20 @ 07:47 by Jessica Luo MD) Colonoscopy - IV Sedation 2008-normal Colonoscopy - MAC (05/14/18) H/O local excision of skin lesion (~2014) Basal cell cancer, nodular type Social History Smoking/Tobacco Use Status: Never Smoking risk assessment performed?: Yes Alcohol Intake: never Drug use: Never Substance use type: does not use Current gender identity: female Do you feel safe at home: Yes Do you feel safe in your relationship?: Yes Exam Const General: cooperative and no acute distress Orientation: alert, awake and oriented x3 HENMT Head: normal to inspection Ears: hearing grossly normal bilaterally, external ears normal and TM's normal bilaterally Face and sinus: normal facial exam Throat: posterior oropharynx normal Eyes General: appearance normal, both eyes and all related structures Pupils: PERRL EOM: EOM intact bilaterally Neck Neck: normal visual inspection and No submandibular swelling Lymphatic: no lymphadenopathy noted Chest Chest: normal inspection of the chest and no tenderness Resp Effort & Inspection: normal respiratory effort and able to speak in complete sentences Auscultation: clear to auscultation bilaterally Cardio Rate: regular rate Rhythm: regular rhythm GI Inspection: normal to inspection Palpation: soft, not firm, not rigid and nontender Auscultation: hypoactive bowel sounds Female genitals images: 1. 2 mm circular pustule with a 2 mm area of erythema, tender to palpation 2. 1 mm circular pustule with 1 mm area of erythema. 3. Faint erythematous papule 4. Faint erythematous papule Back/Spine/Pelvis Thoracic/Lumbar Spine: thoracic and lumbar spine normal to inspection Skin General skin exam: no rashes or lesions noted Neuro General: patient alert, patient awake, patient oriented x3 and no meningeal signs Cognition: normal cognition Speech: speech normal Motor: muscle tone normal throughout Sensory Exam: no sensory deficits noted Extrem General: normal to inspection, full ROM, capillary refill normal, no calf tenderness bilaterally and no edema Psych Appearance: grossly normal Mental Status: mental status grossly normal Speech and Movement: speech and movement normal Affect: normal affect Course Lab/Test Results Lab/Test Results: 03/27/23 18:28 Blood Blood Culture - Pending 03/27/23 18:28 Blood Blood Culture - Pending
--- NOTE | 2023-03-27 18:40 | NUR.NOTE ---
Nursing Note: Accessed pt [facility] record to see the size of the port that was placed 2020.
[2023-03-27 19:00] LABS: Lactate 0.5 mmol/L (0.6-1.4)
--- NOTE | 2023-03-27 19:00 | DI.RAD_ITS ---
Exam(s) XR PORTABLE CHEST AP EXAM: XR PORTABLE CHEST AP CLINICAL HISTORY: fever,recent chemo,r/o pneumonia TECHNIQUE: 2D digital imaging was performed of the chest. One image was obtained. An AP view was ob tained. COMPARISON: CT CT CHEST W from 06/30/2021 FINDINGS: MEDIASTINUM: Normal. HEART: Normal. PULMONARY VASCULATURE: Normal. LUNGS: Clear. PLEURAL SPACE: No pleural effusion or pneumothorax. BONE:Within normal limits for the patient's age. OTHER FINDINGS:There is a right-sided port. The tip is in good position at the junction of the super ior vena cava and right atrium. IMPRESSION: No acute pulmonary findings. DATA REPOSITORY: RADIATION DOSE DELIVERED:
[2023-03-27 19:03] LABS: HCT 33.7 % (36.0-46.0); HGB 11.5 g/dL (11.2-15.7); MCHC 34.1 % (32.0-36.0); MCV 102 fL (80-95); MPV 9.4 fL (8.0-11.0); Platelet Count 134 10^3/uL (130-400); RBC 3.29 10^6/uL (3.93-5.22); RDW 13.6 % (11.7-14.6); RDW-SD 51.4 fL
[2023-03-27 19:22] LABS: ALT 40 U/L (14-59); AST 32 U/L (15-37); Albumin 3.1 g/dL (3.4-5.0); Alkaline Phosphatase 68 U/L (46-116); Anion Gap 7.5 mmol/L (3-11); BUN 13 mg/dL (7-18); Bilirubin, Total 0.2 mg/dL (0.2-1.0); CO2 24.5 mmol/L (21.0-32.0); CREATININE 0.7 mg/dL (0.55-1.02); Calcium 8.6 mg/dL (8.5-10.1); Chloride 100 mmol/L (98-107); Estimated GFR 95.92 (mL/min/1.73m2); Glucose 106 mg/dL (74-106); Magnesium 1.6 mg/dL (1.8-2.4); Potassium 3.6 mmol/L (3.5-5.1); Sodium 132 mmol/L (136-145); Total Protein 6.6 g/dL (6.4-8.2); Troponin I < 50 ng/L (<or=60)
[2023-03-27] MEDS: Normal Saline 1,000 ML 1000 ML IV (19:28)
[2023-03-27] MEDS: ACETAMINOPHEN 1,000 MG/100 ML BTL 400 MG IVPB (19:28)
[2023-03-27 19:30] VITALS: TEMP 38.6
[2023-03-27 19:33] LABS: Absolute Lymphocyte Count 1.56 10^3/uL (1.2-3.4); Absolute Monocyte Count 0.35 10^3/uL (0.1-0.8); Atypical Lymphocytes % 6; Diff Comment Manual Differential
[2023-03-27 19:35] LABS: WBC 1.93 10^3/uL (4.4-10.8)
[2023-03-27 19:36] LABS: Absolute Neutrophil Count 0.02 10^3/uL (1.2-6.7); Anisocytosis 1+
[2023-03-27 19:47] LABS: COVID-19 PCR Negative (Negative); Influenza A PCR Negative (Negative); Influenza B PCR Negative (Negative); RSV PCR Negative (Negative)
[2023-03-27 19:50] LABS: Source Nasopharynx
[2023-03-27 19:55] LABS: Bilirubin Negative (Negative); Blood Negative (Negative); Clarity Clear (Clear); Glucose Negative (Negative); Ketones Negative (Negative); Leukocyte Esterase Negative (Negative); Nitrite Negative (Negative); Specific Gravity 1.015 (1.005-1.025); Urobilinogen 0.2 mg/dL (Up to 0.2); pH 6.5 (5-8)
[2023-03-27] MEDS: MAGNESIUM SULFATE 1 GM/100 ML BAG IVPB (20:01)
[2023-03-27 20:20] VITALS: BP 137/76; PULSE 76; RESP 18; TEMP 38.1; O2SAT 97
[2023-03-27] MEDS: PIPERACILLIN/TAZO 3.375 GM in Normal Saline 50 ML IVPB (20:53)
--- NOTE | 2023-03-27 21:15 | RT.EKG_ITS ---
APPROVED REPORT Exam: Resting ECG Reason for Exam: fever Patient Location: E HR:70 bpm ECG Measurements Heart Rate 70 AXIS RI 178 P 55 QRSd 96 QRS 37 QT 391 T 35 QTc 422 Conclusion Sinus rhythm...normal P axis, V-rate 60- 99. Sinus. Normal axis. No STEMI. I have reviewed and interpreted ECG and agree with software generated interpretation.
[2023-03-27 21:43] VITALS: BP 133/74; PULSE 75; RESP 18; O2SAT 98
[2023-03-27] MEDS: VANCOMYCIN 1,250 MG in Normal Saline 250 ML 166.6666 MG IVPB (22:00)
--- NOTE | 2023-03-27 22:05 | DI.VRAD_ITS ---
PROCEDURE INFORMATION: Exam: XR Chest Exam date and time: 03/27/2023 8:57 PM Age: 67 years old Clinical indication: Other: Fever, recent chemo, R/O pneumonia; Prior surgery; Surgery date: 6+ months; Surgery type: Port placed TECHNIQUE: Imaging protocol: Radiologic exam of the chest. Views: 1 view. COMPARISON: CT CHEST W 06/30/2021 2:40 PM FINDINGS: Tubes, catheters and devices: Monitoring wires noted. Right internal jugular Port-A-Cath is present, tip proximal superior vena cava. Lungs: Unremarkable. No consolidation. Pleural spaces: Unremarkable. No pleural effusion. No pneumothorax. Heart/Mediastinum: Unremarkable. No cardiomegaly. Bones/joints: Unremarkable. IMPRESSION: No acute cardiopulmonary abnormality. Dictated and Authenticated by: Nicolas Dickey MD. Ordering:QUYNH Rutherford MD
--- NOTE | 2023-03-27 22:16 | W.PM.HP.N ---
Date of service: 03/27/23 Time of Service: 22:17 Assessment and Plan Assessment and plan (1) Neutropenic fever: Status: Acute Assessment and plan: This case was reviewed with Ms. Huang's primary oncologist in the emergency room, with a recommendation to treat with Piperacillin/Tazobactam and vancomycin until severe neutropenia resolves. There is no evidence for focal infection other than the mild folliculitis. Will continue Vanco and pip/tazo Daily CBC/diff Neupogen daily until ANC up to 1.5 per oncology. Reverse precautions. Cultures pending, monitor for focal infections. (2) Mullerian mixed tumor: Status: Acute Assessment and plan: History reviewed. Plan to treat fever as above, follow up with heme/onc as planned. (3) Hypomagnesemia: Status: Acute Assessment and plan: 1 gram in ED, repeat in AM and additional supplumetation prn (4) DVT prophylaxis: Status: Acute Assessment and plan: LMWH (5) Discharge planning issues: Status: Acute Assessment and plan: Angie is stable on the medical floor with reverse precautions. She will stay on precautions and broad spectrum antibiotics until her is ANC is 1.5 History of Present Illness History of Present Illness Chief Complaint: fever Narrative: 67 yo F with history of stage 3c ovarian cancer who completed her second of four infusions of chemotherapy on March 17 presenting with acute onset malaise and chills on the afternoon of her admission and was found to be febrile. She had previously tolerated two previous rounds of chemotherapy in 2020 and was feeling well prior to onset of symptoms today. At noon of the day of admission, she started to feel a headache, fatigue, body aches, chills and general malaise. When her (Dr. Darrell Huang the long-time med/peds and hospitalist physician from [facility]) got home in the afternoon they checked her tempurature and it was 100.6. They called [facility] oncology Dr. Colon who recommended immediate evaluation including blood work. She received acetaminophen in the emergency room and this resolved her headache. She has not had issues with neutropenia or infectious complications of chemotherapy in the past, though her chemotherapeutic agents changed this round. She also did note a tender pimple in the right groin area she relates to the bike ride she took the day before admission, but no other skin rashes or sores. No cough or dyspnea, bowel changes, or urinary changes. Review of Systems Constitutional Constitutional: Reports as per HPI, Denies anorexia, Reports chills, Reports fever(s), Reports lethargy and Denies weight loss Eyes Eyes: Denies change in vision and Denies irritation ENT Ears, Nose, Mouth, and Throat: Denies dental pain, Denies dizziness, Denies otalgia, Denies mouth pain, Denies nasal congestion, Denies nasal discharge, Denies sinus pain and Denies sore throat Comments: +dysgusia today Cardiovascular Cardiovascular: Denies chest pain, Denies edema, Denies palpitations and Denies orthopnea Respiratory Respiratory: Denies cough, Denies excessive phlegm production and Denies wheezing Gastrointestinal Gastrointestinal: Denies abdominal pain, Denies heartburn, Denies diarrhea, Reports nausea and Denies vomiting Genitourinary Genitourinary: Denies hematuria, Denies dysuria and Denies urinary incontinence Musculoskeletal Musculoskeletal: Denies arthralgias and Denies joint swelling Integumentary/Breasts Skin/Breast: Reports as per HPI, Denies skin ulcer and Denies wounds Neurologic Neurologic: Denies dizziness and Denies sensory deficit Psychiatric Psychiatric: Denies mood swings Endocrine Endocrine: Denies palpitations Hematologic/Lymphatic Hematologic/Lymphatic: Denies easy bleeding and Denies lymphadenopathy Allergic/Immunologic Allergic/Immunologic: Denies wheezing PFSH All Active Problems (Updated 03/27/23 @ 22:51 by Joel Lozada) Hypomagnesemia (Acute) Discharge planning issues (Acute) DVT prophylaxis (Acute) Neutropenic fever (Acute) History of ovarian cancer (Acute) Mullerian mixed tumor (Acute) Screening for colon cancer (Acute) Seborrheic keratosis (Acute) Skin lesion of face (Acute) Medical History (Updated 03/27/23 @ 22:51 by Joel Lozada) Allergic rhinitis Basal cell carcinoma (BCC) of ala nasi nodular type. Margins clear-removed 2014 Hx of adenomatous colonic polyps Tubular and sessile serrated- 2018 Seborrheic dermatitis Surgical History (Updated 09/29/20 @ 07:47 by Jessica Luo MD) Colonoscopy - IV Sedation 2007-normal Colonoscopy - MAC (05/14/18) H/O local excision of skin lesion (~2014) Basal cell cancer, nodular type Social History Smoking/Tobacco Use Status: Never Smoking risk assessment performed?: Yes Alcohol Intake: never Drug use: Never Substance use type: does not use Current gender identity: female Do you feel safe at home: Yes Do you feel safe in your relationship?: Yes Meds Allergies and Home Medications Allergies Allergy/AdvReac Type Severity Reaction Status Date / Time Iodinated Contrast Media Allergy Intermediate Skin Rash Unverified 03/27/23 18:30 Home Medications Medication Instructions Recorded Confirmed Type fluocinonide 0.05 % topical 60 g topical DAILY 12/05/14 03/27/23 History ointment fluticasone propionate 50 50 mcg NS DAILY PRN 12/05/14 03/27/23 History mcg/actuation nasal spray,suspension (Flonase) metronidazole 0.75 % (37.5 mg/5 37.5 mg topical BID PRN 12/05/14 03/27/23 History gram) vaginal gel calcium carbonate 600 mg-vitamin 1 cap PO DAILY 09/29/20 03/27/23 History D3 12.5 mcg (500 unit) capsule (Calcium 600 with Vitamin D3) acetaminophen 325 mg tablet 325 mg PO ONCE PRN 07/12/22 03/27/23 History (Tylenol) ibuprofen 200 mg tablet 200 mg PO Q6H PRN 07/12/22 03/27/23 History lidocaine-prilocaine 2.5 %-2.5 % 1 applic topical ONCE 07/12/22 03/27/23 History topical cream lorazepam 0.5 mg tablet 0.5 mg PO TID PRN 07/12/22 03/27/23 History ondansetron HCl 4 mg tablet 4 mg PO Q8H 07/12/22 03/27/23 History prochlorperazine maleate 10 mg 10 mg PO BID PRN 07/12/22 03/27/23 History tablet (Compazine) pyridoxine (vitamin B6) 100 mg 100 mg PO QID 07/12/22 03/27/23 History tablet sennosides 8.6 mg tablet 8.6 mg PO DAILY 07/12/22 03/27/23 History (Evac-U-Gen (sennosides)) Exam Narrative Exam Narrative: GEN: Alert and oriented, very pleasant and cooperative, gives linear history. No acute distress at rest. HEENT: Head atraumatic. Conjunctiva clear, no icterus. PEERL, EOMI. no rhinorrhea. MMM, OP benign without lesions, or obvious dental disease. Neck is supple with no masses or lymphadenopathy, trachea midline LUNGS: CTAB with normal effort CV: RRR with no murmurs, gallops, or rubs. ABD: +BS, soft, NT/ND EXT: no cyanosis, clubbing, or edema MSK: No joint redness or swelling NEURO: CN 2-12 grossly intact. Normal movement of 4 extremities. Normal speech and coordination SKIN: One 2-3mm pustule on ~1cm red base surrounded by 3 red papules left groin. no other rashes or skin lesions PSYCH: normal mood and affect Results Imaging Chest x-ray: report reviewed (No acute cardiopulmonary abnormality.) Labs 03/27/23 18:53 03/27/23 18:53 Labs: Laboratory Results - last 24 hr 03/27/23 03/27/23 03/27/23 18:53 18:53 18:53 WBC 1.93 L* RBC 3.29 L Hgb 11.5 Hct 33.7 L MCV 102 H MCH 35.0 H MCHC 34.1 RDW 13.6 Plt Count 134 MPV 9.4 Immature Gran % 0.0 Neutrophils % 1.0 Lymphocytes % 75.0 Atypical Lymphs % 6 Monocytes % 18.0 Eosinophils % 0.0 Basophils % 0.0 Nucleated RBC % 0.0 Absolute Neutrophils 0.02 L* Absolute Lymphocytes 1.56 Absolute Monocytes 0.35 Absolute Eosinophils 0.00 Absolute Basophils 0.00 RBC Morphology See Below Anisocytosis 1+ VBG Lactate 0.5 L Sodium 132 L Potassium 3.6 Chloride 100 Carbon Dioxide 24.5 Anion Gap 7.5 BUN 13 Creatinine 0.7 Est GFR (CKD-EPI 2020) 95.92 Glucose 106 Calcium 8.6 Magnesium 1.6 L Total Bilirubin 0.2 AST 32 ALT 40 Alkaline Phosphatase 68 Troponin I < 50 Total Protein 6.6 Albumin 3.1 L Urine Color Urine Clarity Urine pH Ur Specific [place] Urine Protein Urine Ketones Urine Blood Urine Nitrite Urine Bilirubin Urine Urobilinogen Ur Leukocyte Esterase Urine Glucose COVID-19 Source SARS-CoV-2 (PCR) Influenza Type A (PCR) Influenza Type B (PCR) RSV (PCR) 03/27/23 03/27/23 18:56 19:44 WBC RBC Hgb Hct MCV MCH MCHC RDW Plt Count MPV Immature Gran % Neutrophils % Lymphocytes % Atypical Lymphs % Monocytes % Eosinophils % Basophils % Nucleated RBC % Absolute Neutrophils Absolute Lymphocytes Absolute Monocytes Absolute Eosinophils Absolute Basophils RBC Morphology Anisocytosis VBG Lactate Sodium Potassium Chloride Carbon Dioxide Anion Gap BUN Creatinine Est GFR (CKD-EPI 2020) Glucose Calcium Magnesium Total Bilirubin AST ALT Alkaline Phosphatase Troponin I Total Protein Albumin Urine Color Yellow Urine Clarity Clear Urine pH 6.5 Ur Specific [place] 1.015 Urine Protein Negative Urine Ketones Negative Urine Blood Negative Urine Nitrite Negative Urine Bilirubin Negative Urine Urobilinogen 0.2 Ur Leukocyte Esterase Negative Urine Glucose Negative COVID-19 Source Nasopharynx SARS-CoV-2 (PCR) Negative Influenza Type A (PCR) Negative Influenza Type B (PCR) Negative RSV (PCR) Negative Last Vital Signs Temp 38.1 C H 03/27/23 20:20 Pulse 75 03/27/23 21:43 Resp 18 03/27/23 21:43 BP 133/74 03/27/23 21:43 Pulse Ox 98 03/27/23 21:43 Time Spent Time spent with Patient: 55-74 minutes Time was spent: preparing to see the patient(eg.review tests), obtaining and/or reviewing separately otained hiistory, ordering medications,tests, procedures, referring, communicating with other health long term care social worker, indepentently interpreting results and counseling the patient
[2023-03-27 22:18] VITALS: BP 154/86; PULSE 82; RESP 16; TEMP 37.5; O2SAT 98
[2023-03-27] MEDS: Enoxaparin 40 MG/0.4 ML SYR SC (23:29)
[2023-03-27] MEDS: Normal Saline 1,000 ML 150 ML IV (23:31)
[2023-03-28] VITALS (11 sets, daily range): BP systolic 123–149; BP diastolic 72–89; PULSE 68–87; RESP 15–20; TEMP 37.3–38.6; O2SAT 96–98
[2023-03-28] MEDS: Water,Injection,Sterile 10 ML VIAL (00:11)
[2023-03-28] MEDS: VANCOMYCIN 500 MG in Normal Saline 100 ML 100 MG IVPB (00:11)
[2023-03-28] MEDS: Normal Saline 100 ML (00:12)
[2023-03-28] MEDS: Normal Saline Flush 10 ML SYR IVP ×2 (00:12→06:36)
[2023-03-28] MEDS: PIPERACILLIN/TAZO 3.375 GM in Normal Saline 50 ML IVPB ×4 (04:14→21:07)
[2023-03-28] MEDS: Acetaminophen 325 MG TAB 650 MG PO ×3 (05:48→19:33)
[2023-03-28] MEDS: Normal Saline 1,000 ML 150 ML IV ×2 (06:37→14:33)
[2023-03-28 07:37] LABS: Absolute Basophil Count 0.01 10^3/uL (0.0-0.2); HCT 32.3 % (36.0-46.0); MCH 34.8 pg (27.0-33.0); MCHC 34.1 % (32.0-36.0); MCV 102 fL (80-95); MPV 9.8 fL (8.0-11.0); Platelet Count 119 10^3/uL (130-400); RBC 3.16 10^6/uL (3.93-5.22); RDW 13.6 % (11.7-14.6); RDW-SD 51.4 fL
[2023-03-28 07:52] LABS: ALT 38 U/L (14-59); AST 34 U/L (15-37); Albumin 2.7 g/dL (3.4-5.0); Alkaline Phosphatase 59 U/L (46-116); Anion Gap 8.5 mmol/L (3-11); BUN 7 mg/dL (7-18); Bilirubin, Total 0.8 mg/dL (0.2-1.0); CO2 23.5 mmol/L (21.0-32.0); CREATININE 0.7 mg/dL (0.55-1.02); Calcium 7.9 mg/dL (8.5-10.1); Chloride 105 mmol/L (98-107); Estimated GFR 95.92 (mL/min/1.73m2); Glucose 89 mg/dL (74-106); Magnesium 1.7 mg/dL (1.8-2.4); Potassium 3.8 mmol/L (3.5-5.1); Sodium 137 mmol/L (136-145); Total Protein 5.8 g/dL (6.4-8.2)
[2023-03-28 08:08] LABS: Absolute Lymphocyte Count 0.95 10^3/uL (1.2-3.4); Absolute Monocyte Count 0.27 10^3/uL (0.1-0.8)
[2023-03-28 08:09] LABS: Diff Comment Manual Differential; RBC Morphology Normal
[2023-03-28 08:12] LABS: Absolute Neutrophil Count 0.11 10^3/uL (1.2-6.7); WBC 1.34 10^3/uL (4.4-10.8)
--- NOTE | 2023-03-28 08:40 | PDOC.CMIN ---
Date of service: 03/28/23 Time of Service: 08:40 Care Management Initial Assmt Initial Assessment REASON FOR HOSPITALIZATION:: Neutropenic fever, Mullerian mixed tumor, Hypomagnesemia, PREVIOUS FUNCTIONAL STATUS/SOCIAL/FAMILY SUPPORTS:: Angie lives in [place] with her Tim. Cassie jacskon and is active and independent at baseline. She enjoys working outside in her garden in her spare time. CURRENT FUNCTIONAL STATUS:: Angie is sitting up in her chair visiting with her when CM met with her. Per pt, she is currently receiving oncology treatment at [facility] and also notes that she has a specialist a [facility]. ADVANCE DIRECTIVES:: On file, [facility] is Wojciech Huang () Has patient been provided with info about the portal/API?: Yes Did the patient sign up for the portal?: Yes (Prior to admission) CODE STATUS:: Full Code INSURANCE COVERAGE / FINANCIAL ISSUES:: [employer] [place] Medicare Part A Only [employer] CURRENT HOME/COMMUNITY SERVICES/EQUIPMENT:: None PRIMARY CARE PHYSICIAN:: Cammy Alfaro POTENTIAL DISCHARGE NEEDS:: Follow up appointments, discharge plan of care. PATIENT/FAMILY EDUCATION NEEDS:: Review discharge instructions, limitations, medications and plan to follow up with community providers. Discuss ask me three. ANTICIPATED BARRIERS TO DISCHARGE:: None identified at this time. TRANSPORTATION:: Via private vehicle with PLAN:: Anticipate, Angie will discharge home via private vehicle with family, when medically ready per provider. She will follow up with community providers and her discharge plan of care as prescribed. PFSH All Active Problems (Updated 03/27/23 @ 22:51 by Joel Lozada) Hypomagnesemia (Acute) Discharge planning issues (Acute) DVT prophylaxis (Acute) Neutropenic fever (Acute) History of ovarian cancer (Acute) Mullerian mixed tumor (Acute) Screening for colon cancer (Acute) Seborrheic keratosis (Acute) Skin lesion of face (Acute) Medical History (Updated 03/27/23 @ 22:51 by Joel Lozada) Allergic rhinitis Basal cell carcinoma (BCC) of ala nasi nodular type. Margins clear-removed 2014 Hx of adenomatous colonic polyps Tubular and sessile serrated- 2018 Seborrheic dermatitis Surgical History (Updated 09/29/20 @ 07:47 by Jessica Luo MD) Colonoscopy - IV Sedation 2007-normal Colonoscopy - MAC (05/14/18) H/O local excision of skin lesion (~2014) Basal cell cancer, nodular type Social History Smoking/Tobacco Use Status: Never Smoking risk assessment performed?: Yes Alcohol Intake: never Drug use: Never Substance use type: does not use Current gender identity: female Do you feel safe at home: Yes Do you feel safe in your relationship?: Yes
[2023-03-28] MEDS: VANCOMYCIN/WATER (PEG) 1 GM/200 ML BAG IV ×2 (11:43→22:13)
--- NOTE | 2023-03-28 12:47 | PGE_ITS ---
Date of Service Date of service: 03/28/23 Time of Service: 12:47 Assessment and Plan Assessment and plan (1) Neutropenic fever: Status: Acute Assessment and plan: This case was reviewed with Shantell Sal's primary oncologist in the emergency room, with a recommendation to treat with Piperacillin/Tazobactam and vancomycin until severe neutropenia resolves. There is no evidence for focal infection other than the mild folliculitis. Will continue Vanco and pip/tazo Daily CBC/diff Neupogen daily until ANC up to 1.5 per oncology. ANC: .02 > .11 Reverse precautions. Cultures pending, monitor for focal infections. (2) Mullerian mixed tumor: Status: Acute Assessment and plan: History reviewed. Plan to treat fever as above, follow up with heme/onc as planned. (3) Hypomagnesemia: Status: Acute Assessment and plan: Mg 1.6. 1 gram in ED. Repeat today 1.7. Oral supp. (4) DVT prophylaxis: Status: Acute Assessment and plan: LMWH (5) Discharge planning issues: Status: Acute Assessment and plan: Angie is stable on the medical floor with reverse precautions. She will stay on precautions and broad spectrum antibiotics until her is ANC is 1.5 Subjective Subjective Patient reports: no new complaints, tolerating a regular diet and afebrile (Tm of 38.6 last PM and this AM at 05:54. Now 37.8.); denies shortness of breath Interval history since last seen: Endorses some fatigue Exam Narrative Exam Narrative: GEN: Alert and oriented. Sitting in chair eating lunch. NAD VS: T37.8. P78. BP 135/87. RA sat. 98% Exam: deferred. Objective Last Vital Signs Temp 37.8 C H 03/28/23 11:48 Pulse 78 03/28/23 11:48 Resp 20 03/28/23 11:48 BP 135/87 03/28/23 11:48 Pulse Ox 98 03/28/23 11:48 Laboratory Results - last 24 hr 03/27/23 03/27/23 03/27/23 18:53 18:53 18:53 WBC 1.93 L* RBC 3.29 L Hgb 11.5 Hct 33.7 L MCV 102 H MCH 35.0 H MCHC 34.1 RDW 13.6 Plt Count 134 MPV 9.4 Immature Gran % 0.0 Neutrophils % 1.0 Lymphocytes % 75.0 Atypical Lymphs % 6 Monocytes % 18.0 Eosinophils % 0.0 Basophils % 0.0 Nucleated RBC % 0.0 Absolute Neutrophils 0.02 L* Absolute Lymphocytes 1.56 Absolute Monocytes 0.35 Absolute Eosinophils 0.00 Absolute Basophils 0.00 RBC Morphology See Below Anisocytosis 1+ VBG Lactate 0.5 L Sodium 132 L Potassium 3.6 Chloride 100 Carbon Dioxide 24.5 Anion Gap 7.5 BUN 13 Creatinine 0.7 Est GFR (CKD-EPI 2020) 95.92 Glucose 106 Calcium 8.6 Magnesium 1.6 L Total Bilirubin 0.2 AST 32 ALT 40 Alkaline Phosphatase 68 Troponin I < 50 Total Protein 6.6 Albumin 3.1 L Urine Color Urine Clarity Urine pH Ur Specific [place] Urine Protein Urine Ketones Urine Blood Urine Nitrite Urine Bilirubin Urine Urobilinogen Ur Leukocyte Esterase Urine Glucose COVID-19 Source SARS-CoV-2 (PCR) Influenza Type A (PCR) Influenza Type B (PCR) RSV (PCR) Path Cons Comment SEE COMMENT 03/27/23 03/27/23 03/28/23 18:56 19:44 05:35 WBC RBC Hgb Hct MCV MCH MCHC RDW Plt Count MPV Immature Gran % Neutrophils % Lymphocytes % Atypical Lymphs % Monocytes % Eosinophils % Basophils % Nucleated RBC % Absolute Neutrophils Absolute Lymphocytes Absolute Monocytes Absolute Eosinophils Absolute Basophils RBC Morphology Anisocytosis VBG Lactate Sodium Potassium Chloride Carbon Dioxide Anion Gap BUN Creatinine Est GFR (CKD-EPI 2020) Glucose Calcium Magnesium Cancelled Total Bilirubin AST ALT Alkaline Phosphatase Troponin I Total Protein Albumin Urine Color Yellow Urine Clarity Clear Urine pH 6.5 Ur Specific [place] 1.015 Urine Protein Negative Urine Ketones Negative Urine Blood Negative Urine Nitrite Negative Urine Bilirubin Negative Urine Urobilinogen 0.2 Ur Leukocyte Esterase Negative Urine Glucose Negative COVID-19 Source Nasopharynx SARS-CoV-2 (PCR) Negative Influenza Type A (PCR) Negative Influenza Type B (PCR) Negative RSV (PCR) Negative Path Cons Comment 03/28/23 03/28/23 06:42 06:42 WBC 1.34 L* RBC 3.16 L Hgb 11.0 L Hct 32.3 L MCV 102 H MCH 34.8 H MCHC 34.1 RDW 13.6 Plt Count 119 L MPV 9.8 Immature Gran % 0.0 Neutrophils % 8.0 Lymphocytes % 71.0 Atypical Lymphs % Monocytes % 20.0 Eosinophils % 0.0 Basophils % 1.0 Nucleated RBC % 0.0 Absolute Neutrophils 0.11 L* Absolute Lymphocytes 0.95 L Absolute Monocytes 0.27 Absolute Eosinophils 0.00 Absolute Basophils 0.01 RBC Morphology Normal Anisocytosis VBG Lactate Sodium 137 Potassium 3.8 Chloride 105 Carbon Dioxide 23.5 Anion Gap 8.5 BUN 7 Creatinine 0.7 Est GFR (CKD-EPI 2020) 95.92 Glucose 89 Calcium 7.9 L Magnesium 1.7 L Total Bilirubin 0.8 AST 34 ALT 38 Alkaline Phosphatase 59 Troponin I Total Protein 5.8 L Albumin 2.7 L Urine Color Urine Clarity Urine pH Ur Specific [place] Urine Protein Urine Ketones Urine Blood Urine Nitrite Urine Bilirubin Urine Urobilinogen Ur Leukocyte Esterase Urine Glucose COVID-19 Source SARS-CoV-2 (PCR) Influenza Type A (PCR) Influenza Type B (PCR) RSV (PCR) Path Cons Comment Time Spent with Patient Time Spent with Patient: <25 minutes Time was spent: preparing to see the patient(eg.review tests), obtaining and/or reviewing separately otained hiistory, ordering medications,tests, procedures, referring, communicating with other health human services care specialist and indepentently interpreting results
[2023-03-28] MEDS: Magnesium Oxide 400 MG TAB PO (19:33)
[2023-03-28] MEDS: Enoxaparin 40 MG/0.4 ML SYR SC (21:07)
--- NOTE | 2023-03-28 22:15 | NUR.NOTE ---
Pt with temp of 37.8 around 1999. tylenol administered. retail receiving clerk made aware. temp rechecked 45 minutes later. temp 38.3. Ice packs applied. Room temperature lowered. retail receiving clerk aware. Temp rechecked 30 minutes later. temp 37.6. Pt resting comfortably in bed with vanco and NS running through [facility]. Will monitor for s/s of neutropenic fevers.
[2023-03-29] MEDS: PIPERACILLIN/TAZO 3.375 GM in Normal Saline 50 ML IVPB ×4 (03:44→21:35)
[2023-03-29 04:03] VITALS: BP 135/87; PULSE 70; RESP 18; TEMP 36.9; O2SAT 95
[2023-03-29 06:48] LABS: HGB 10.4 g/dL (11.2-15.7); MCH 34.9 pg (27.0-33.0); MCHC 33.5 % (32.0-36.0); MCV 104 fL (80-95); MPV 9.6 fL (8.0-11.0); Platelet Count 103 10^3/uL (130-400); RBC 2.98 10^6/uL (3.93-5.22); RDW 13.9 % (11.7-14.6); RDW-SD 53.5 fL; WBC 3.87 10^3/uL (4.4-10.8)
[2023-03-29 07:14] LABS: Magnesium 1.7 mg/dL (1.8-2.4)
[2023-03-29 07:21] VITALS: BP 130/80; PULSE 76; RESP 16; TEMP 37; O2SAT 97
[2023-03-29 08:04] LABS: Absolute Lymphocyte Count 1.97 10^3/uL (1.2-3.4); Absolute Neutrophil Count 1.55 10^3/uL (1.2-6.7)
[2023-03-29 08:05] LABS: Absolute Monocyte Count 0.35 10^3/uL (0.1-0.8); Diff Comment Manual Differential; RBC Morphology Normal
--- NOTE | 2023-03-29 09:23 | PDOC.CMPRO ---
Date of service: 03/29/23 Time of Service: 09:23 Care Management Progress Note Progress Note Text Progress Note Text: S/O: Angie is being monitored and treated for neutropenic fevers. Her labs are being closely monitored and cultures are pending. She is being treated with IV Piperacillin/Tazobactam and vancomycin and remains on reverse precautions per Oncology recommendations. Anticipate, Angie will discharge home with close community follow up when Medically ready for discharge. A: 67 year old female admitted to [facility] on 03/27/23 for Neutropenic fever, Mullerian mixed tumor, Hypomagnesemia,? P: Anticipate, Angie will discharge home via private vehicle with family, when medically ready per provider. No [facility] services are anticipated at this time. She will follow up with community providers and her discharge plan of care as prescribed.
[2023-03-29] MEDS: Magnesium Oxide 400 MG TAB PO ×2 (10:12→19:28)
[2023-03-29] MEDS: Normal Saline 1,000 ML 150 ML IV ×2 (11:14→19:30)
[2023-03-29] MEDS: Normal Saline Flush 10 ML SYR IVP (11:35)
[2023-03-29 12:12] LABS: Vancomycin, Trough 9.2 ug/mL (10.0-20.0)
[2023-03-29] MEDS: VANCOMYCIN/WATER (PEG) 1.25 GM/250 ML BAG IV (12:49)
--- NOTE | 2023-03-29 15:58 | PGE_ITS ---
Date of Service Date of service: 03/29/23 Time of Service: 15:58 Assessment and Plan Assessment and plan (1) Neutropenic fever: Status: Acute Assessment and plan: This case was reviewed with Ms. Huang's primary oncologist in the emergency room, with a recommendation to treat with Piperacillin/Tazobactam and vancomycin until severe neutropenia resolves. There is no evidence for focal infection other than the mild folliculitis. Tm overnight was 38.3 at 21:16. Discussed with on-call heme/onc physician. Suggest continuing hospitalization and IV antibiotics until at least 24 hours afebrile. When discharged, home on Levaquin. Will continue Vanco and pip/tazo now. WBC count improved to 3.87. ANC 1550. No further Neupogen. Reverse precautions. Blood cx NGTD and urine cx growing gram + mixed anna. . (2) Mullerian mixed tumor: Status: Acute Assessment and plan: History reviewed. Plan to treat fever as above, follow up with heme/onc as planned. (3) Hypomagnesemia: Status: Acute Assessment and plan: Mg 1.6. 1 gram in ED. Repeat today 1.7 Oral supp. Cont to monitor. (4) DVT prophylaxis: Status: Acute Assessment and plan: LMWH (5) Discharge planning issues: Status: Acute Assessment and plan: Angie is stable on the medical floor with reverse precautions. She will stay on precautions now until afebrile for another 24 hours. Subjective Subjective Patient reports: no new complaints and tolerating a regular diet; denies margarito rrhea, nausea, vomiting or shortness of breath Interval history since last seen: Tm of 38.3 overnight. Exam Narrative Exam Narrative: Gen: NAD. Ambulating in room. Lungs: clear. Nonlabored breathing. Exts: No edema. Psych: affect appropriate. Objective Last Vital Signs Temp 37.0 C 03/29/23 07:21 Pulse 76 03/29/23 07:21 Resp 16 03/29/23 07:21 BP 130/80 03/29/23 07:21 Pulse Ox 97 03/29/23 07:21 Laboratory Results - last 24 hr 03/29/23 03/29/23 03/29/23 06:06 06:06 11:50 WBC 3.87 L RBC 2.98 L Hgb 10.4 L Hct 31.0 L MCV 104 H MCH 34.9 H MCHC 33.5 RDW 13.9 Plt Count 103 L MPV 9.6 Immature Gran % 0.0 Neutrophils % 40.0 Lymphocytes % 51.0 Monocytes % 9.0 Eosinophils % 0.0 Basophils % 0.0 Nucleated RBC % 0.0 Absolute Neutrophils 1.55 Absolute Lymphocytes 1.97 Absolute Monocytes 0.35 Absolute Eosinophils 0.00 Absolute Basophils 0.00 RBC Morphology Normal Magnesium 1.7 L Vancomycin Trough 9.2 L Time Spent with Patient Time Spent with Patient: 25-34 minutes Time was spent: preparing to see the patient(eg.review tests), obtaining and/or reviewing separately otained hiistory, ordering medications,tests, procedures, indepentently interpreting results and care coordination
--- NOTE | 2023-03-29 16:41 | PHA.REVIEW2 ---
Pharmacy Admission Review - Admission Clinical Review (Last Updated 09/29/20 @ 07:47 by Jessica Luo MD) Hypomagnesemia (Acute) Discharge planning issues (Acute) DVT prophylaxis (Acute) Neutropenic fever (Acute) History of ovarian cancer (Acute) Mullerian mixed tumor (Acute) Iodinated Contrast Media Allergy (Intermediate, Unverified 03/27/23 18:30) Skin Rash Resuscitation Status Full Code Height 5 ft 3 in Weight 69.536 kg - Renal Dosing Renal Dosing: BUN 7 mg/dL (7-18) 03/28/23 06:42 Creatinine 0.7 mg/dL (0.55-1.02) 03/28/23 06:42 Medications needing adjustments: Reviewed List of meds needing interventions: eCrCl 52 ml/min, orders ok - Anticoagulation Anticoagulation: Hgb 10.4 g/dL (11.2-15.7) L 03/29/23 06:06 Hct 31.0 % (36.0-46.0) L 03/29/23 06:06 Plt Count 103 10^3/uL (130-400) L 03/29/23 06:06 Creatinine 0.7 mg/dL (0.55-1.02) 03/28/23 06:42 DVT Prophylaxis: Reviewed Medications: Enoxaparin - Opiate Usage Evaluate Pain Scale/Pains Meds: N/A - Relevant Labs Sodium 137 mmol/L (136-145) 03/28/23 06:42 Potassium 3.8 mmol/L (3.5-5.1) 03/28/23 06:42 Chloride 105 mmol/L (98-107) 03/28/23 06:42 Magnesium 1.7 mg/dL (1.8-2.4) L 03/29/23 06:06 Electrolytes, C-Reactive P, ESR: Reviewed (Mag repleted with IV upon admission plus scheduled PO BID) - DM Control DM Control: Glucose 89 mg/dL (74-106) 03/28/23 06:42 DM Control: N/A - Cardiac Review Cardiac Review: Troponin I < 50 ng/L (<or=60) 03/27/23 18:53 BP, HR, EF%: Reviewed - Qtc Review QTc: Reviewed If Elevated, List meds needing intervention: QTc 422 on admission - IV to PO Switch IV Medications: Reviewed (continuing IV abx until at least 24 hours fever free then will DC'd home on levaquin) - Home Meds Home Med List reviewed: Reviewed - Current meds Current Medication Order Review: Reviewed
[2023-03-29 17:49] VITALS: BP 136/78; PULSE 75; RESP 16; TEMP 36.8; O2SAT 98
[2023-03-29] MEDS: Enoxaparin 40 MG/0.4 ML SYR SC (21:35)
[2023-03-29 23:00] VITALS: BP 128/76; PULSE 71; RESP 18; TEMP 36.6; O2SAT 95
[2023-03-30] MEDS: VANCOMYCIN/WATER (PEG) 1.25 GM/250 ML BAG IV (00:21)
[2023-03-30] MEDS: Normal Saline 1,000 ML 150 ML IV (03:44)
[2023-03-30] MEDS: PIPERACILLIN/TAZO 3.375 GM in Normal Saline 50 ML IVPB ×2 (03:44→11:10)
[2023-03-30 06:46] LABS: Abs Immature Grans 0.03 10^3/uL (0.0-0.06); Absolute Basophil Count 0.02 10^3/uL (0.0-0.2); Absolute Eosinophil Count 0.02 10^3/uL (0.0-0.7); Absolute Lymphocyte Count 2.49 10^3/uL (1.2-3.4); Absolute Monocyte Count 0.64 10^3/uL (0.1-0.8); Absolute Neutrophil Count 2.77 10^3/uL (1.2-6.7); Basophils % 0.3; Eosinophils % 0.3; HCT 31.5 % (36.0-46.0); HGB 10.5 g/dL (11.2-15.7); Immature Grans % 0.5; Lymphocytes % 41.7; MCH 34.9 pg (27.0-33.0); MCHC 33.3 % (32.0-36.0); MCV 105 fL (80-95); MPV 10.5 fL (8.0-11.0); Monocytes % 10.7; Neutrophils % 46.5; Platelet Count 118 10^3/uL (130-400); RBC 3.01 10^6/uL (3.93-5.22); RDW 14.1 % (11.7-14.6); RDW-SD 54.2 fL; WBC 5.97 10^3/uL (4.4-10.8)
[2023-03-30 06:55] LABS: Magnesium 1.6 mg/dL (1.8-2.4)
[2023-03-30 07:33] VITALS: BP 144/99; PULSE 69; RESP 18; TEMP 36.7; O2SAT 98
[2023-03-30] MEDS: MAGNESIUM SULFATE 2 GM/50 ML BAG IVPB (09:37)
[2023-03-30 09:38] LABS: Lab Add On Test DONE
[2023-03-30 10:09] LABS: Potassium 4.4 mmol/L (3.5-5.1)
--- NOTE | 2023-03-30 11:48 | W.PM.DS.N ---
Date of service: 03/30/23 Time of Service: 11:48 DS: Diagnosis Discharge Diagnosis (1) Neutropenic fever: Status: Acute (2) Mullerian mixed tumor: Status: Acute (3) Hypomagnesemia: Status: Acute (4) Macrocytic anemia: Status: Acute (5) Thrombocytopenia: Status: Acute Discharge Plan Disposition Patient Disposition: Home Condition: Improving Discharge Details Reason For Visit: Neutopenic Fever,S/P Chemo,H/O Ovarian Cancer Admit Date/Time: 03/27/23 20:47 Admit Provider: Joel Lozada Attending Provider: Joel Lozada [facility]: Ms Huang is a 67 year old female with PMHx of ovarian cancer (Mullerian mixed tumor), on chemotherapy (completed last cycle of March 17), who was a patient on [facility] hospitalist service from 03/27/23 until 03/30/23 having presented with neutropenic fever. Her ANC was 20. Per [facility] oncology recommendations, the patient was initiated on neupogen as well as vancomycin and zosyn while her septic workup was pending. The only possible source for the fever was mild folliculitis of R groin. Her peripheral blood cultures remain negative (it does not appear that her port was cultured). Her urinalysis was negative. Her CXR was negative. Her FluVID PCR was negative. The case was again discussed with [facility] oncology, who recommend discharge home with levofloxacin and outpatient follow up assuming the patient remains afebrile x 24 hrs. Her last recorded fever was on 03/28/23 at 21:16. She feels well and ready for discharge. Her follow up appointment with oncology is already scheduled for next Monday. She tolerated a dose of levofloxacin prior to her discharge home. She is instructed to follow up with her PCP in 1- 2 weeks and to return to the hospital should the fever recur. At that point, her infusaport should be cultured. Care for patient as well as completion of her discharge summary on day of discharge took 45 minutes. Home Meds and New Rx's Prescriptions: New levofloxacin 750 mg tablet 750 mg PO DAILY Qty: 5 0RF Continued calcium carbonate-vitamin D3 [Calcium 600 with Vitamin D3] 600 mg(1,500mg) -500 unit capsule 1 cap PO DAILY metronidazole 70 GM gel 37.5 mg Topical BID PRN fluocinonide 60 GM ointment 60 g Topical DAILY Patient Comments: pt. states it has been over a month since taken fluticasone propionate [Flonase] 16 GM spray,suspension 50 mcg NS DAILY PRN ibuprofen 200 mg tablet 200 mg PO Q6H PRN sennosides [Evac-U-Gen (sennosides)] 8.6 mg tablet 8.6 mg PO DAILY lidocaine-prilocaine 2.5-2.5 % cream 1 applic topical ONCE lorazepam 0.5 mg tablet 0.5 mg PO TID PRN ondansetron HCl 4 mg tablet 4 mg PO Q8H prochlorperazine maleate [Compazine] 10 mg tablet 10 mg PO BID PRN pyridoxine (vitamin B6) 100 mg tablet 100 mg PO QID acetaminophen [Tylenol] 325 mg tablet 325 mg PO ONCE PRN Discharge Instructions Instructions: Levofloxacin (By mouth), Neutropenia (DC) Additional Instructions: Return to the hospital with any recurrence of fever, bleeding, chest pain, or shortness of breath. Stand Alone Forms: Nursing Discharge Form Referrals: ONCOLOGY,[facility] [OTHER] - (Please keep your three appointments that you have set up for next week in [place]. ) Cammy Alfaro [Primary Care Provider] - 04/14/23 1:50 pm Activity:: Activity as Tolerated Equipment/Supplies:: No Equipment Needed Diet:: As Tolerated Discharge Orders Discharge Orders: Discharge Order (Routine); Ordered 03/30/23 Ordered By: Mikaela Hurd Discharge Data Discharge Date/Time-TO BE ENTERED AT DEPARTURE: 03/30/23 13:22 DS: Summary Time Spent with Patient providing and/or coordinating discharge services: Greater than 30 minutes Status at Discharge Functional status at discharge: independent ambulation Overall status at discharge: patient is back to baseline Mental Status: mental status grossly normal Speech and Movement: speech and movement normal Mood: congruent mood Affect: normal affect Exam Narrative Exam Narrative: General: Pleasant female who does not appear ill, A&Ox3, NAD HEENT: EOMI, MMM Heart: RRR, nom/r/g Lungs: CTAB Abdomen: soft, nontender, nondistended Extremities: no edema BLEs Psych Mental Status: mental status grossly normal Speech and Movement: speech and movement normal Mood: congruent mood Affect: normal affect DS: Data Vitals/I&O Vitals and I&O: Vital Signs Temperature 36.7 C 03/30/23 07:33 Temperature Source Tympanic 03/30/23 07:33 Pulse 69 03/30/23 07:33 Pulse Rhythm Regular 03/29/23 23:17 Respiratory Rate 18 03/30/23 07:33 Respiratory Effort Normal 03/29/23 23:17 Respiratory Depth Normal 03/29/23 23:17 Respiratory Pattern Normal 03/29/23 23:17 Blood Pressure 144/99 H 03/30/23 07:33 Pulse Oximetry 98 03/30/23 07:33 Oxygen Delivery Method Room Air 03/30/23 07:33 Oxygen Flow Rate 0 03/30/23 07:33 Pain Level 0 03/30/23 07:33 Comment ice packs applied, room temp lowered 03/28/23 22:15 Intake & Output 03/29/23 03/29/23 03/30/23 11:59 23:59 11:59 Intake Total 1710 / 3290 1580 / 3290 2215 / 2215 Output Total 500 / 500 Balance 1210 / 2790 1580 / 2790 2215 / 2215 Weight 69.536 kg 65 kg Intake: IV 1350 / 2450 1100 / 2450 2215 / 2215 Oral 360 / 840 480 / 840 Output: Urine 500 / 500 Other: Urine Color Yellow Urine Appearance Clear Clear Stool Size Small Stool Characteristics Liquid Data Completed and Pending Completed studies during hospitalization [Text1]: CXR 03/27/23: No acute pulmonary findings. Labs on day of discharge: Labs from last 24 hours 03/30/23 03/30/23 03/30/23 05:54 05:54 05:54 WBC RBC Hgb Hct MCV MCH MCHC RDW Plt Count MPV Immature Gran % Neutrophils % Lymphocytes % Monocytes % Eosinophils % Basophils % Nucleated RBC % Absolute Neutrophils Absolute Lymphocytes Absolute Monocytes Absolute Eosinophils Absolute Basophils Potassium 4.4 Magnesium 1.6 L Vancomycin Trough Add-On Test Request DONE 03/30/23 03/29/23 05:54 11:50 WBC 5.97 RBC 3.01 L Hgb 10.5 L Hct 31.5 L MCV 105 H MCH 34.9 H MCHC 33.3 RDW 14.1 Plt Count 118 L MPV 10.5 Immature Gran % 0.5 Neutrophils % 46.5 Lymphocytes % 41.7 Monocytes % 10.7 Eosinophils % 0.3 Basophils % 0.3 Nucleated RBC % 0.0 Absolute Neutrophils 2.77 Absolute Lymphocytes 2.49 Absolute Monocytes 0.64 Absolute Eosinophils 0.02 Absolute Basophils 0.02 Potassium Magnesium Vancomycin Trough 9.2 L Add-On Test Request Preliminary micro results at discharge 03/27/23 20:27 Blood Culture - Preliminary Blood NO GROWTH 48 HOURS 03/27/23 18:53 Blood Culture - Preliminary Blood NO GROWTH 48 HOURS PFSH All Active Problems (Updated 03/30/23 @ 15:17 by Mikaela Hurd MD) Thrombocytopenia (Acute) Macrocytic anemia (Acute) Hypomagnesemia (Acute) Discharge planning issues (Acute) DVT prophylaxis (Acute) Neutropenic fever (Acute) History of ovarian cancer (Acute) Mullerian mixed tumor (Acute) Screening for colon cancer (Acute) Seborrheic keratosis (Acute) Skin lesion of face (Acute) Medical History (Updated 03/30/23 @ 15:17 by Mikaela Hurd MD) Allergic rhinitis Basal cell carcinoma (BCC) of [place] nodular type. Margins clear-removed 2014 Hx of adenomatous colonic polyps Tubular and sessile serrated- 2018 Seborrheic dermatitis Surgical History (Updated 09/29/20 @ 07:47 by Jessica Luo MD) Colonoscopy - IV Sedation 2007-normal Colonoscopy - MAC (05/14/18) H/O local excision of skin lesion (~2014) Basal cell cancer, nodular type Social History Smoking/Tobacco Use Status: Never Smoking risk assessment performed?: Yes Alcohol Intake: never Drug use: Never Substance use type: does not use Current gender identity: female Do you feel safe at home: Yes Do you feel safe in your relationship?: Yes Time Spent with Patient Time Spent with Patient: 45-69 minutes Time was spent: preparing to see the patient(eg.review tests), obtaining and/or reviewing separately otained hiistory, ordering medications,tests, procedures, referring, communicating with other health child care supervisor, indepentently interpreting results, counseling the patient and care coordination
[2023-03-30] MEDS: levoFLOXacin 500 MG, levoFLOXacin 250 MG 750 MG PO (12:15)
--- NOTE | 2023-03-30 12:31 | PDOC.CMDIS ---
Date of service: 03/30/23 Time of Service: 12:31 LACE Index Scoring Tool Questions: Length of Stay (in days): 3 Was the patient admitted via the E.D.?: Yes Comorbidities: Metastatic Solid Tumor (Ovarian Cancer) E.D. Visits: 1 Answers: Total Score: 12 Risk of Readmission: High Risk Care Management Discharge Plan Reason for Hospitalization: Neutropenic fever, Mullerian mixed tumor, Hypomagnesemia, Discharge Plan: Angie is discharged home via private vehicle with family. She will follow up with her community providers and discharge plan of care as prescribed. No new [facility] services are ordered. Patient/Family Education Needs: Review discharge instructions, limitations, medications and plan to follow up with her Oncologist and PCP. Discuss ask me three.
[2023-03-30] MEDS: Normal Saline Flush 10 ML SYR IVP (13:07)
[2023-03-30] MEDS: Heparin 500 UNITS/5 ML SYRINGE IVP (13:07)
== END 2023-03-30 13:22 | disposition home or self-care (01) ==
LOC: ER 21:28 → MS 21:43
PROVIDERS: Family Medicine; Internal Medicine; Admitting Provider Family Medicine; Emergency Provider Physician Assistant; PCP Family Medicine; Visit Provider Family Medicine
DX: D70.9 Neutropenia, unspecified (principal); C56.9 Malignant neoplasm of unspecified ovary; Z79.899 Other long term (current) drug therapy; E83.42 Hypomagnesemia; J30.9 Allergic rhinitis, unspecified; L21.9 Seborrheic dermatitis, unspecified; Z85.828 Personal history of other malignant neoplasm of skin; L73.9 Follicular disorder, unspecified; R50.81 Fever presenting with conditions classified elsewhere; D53.9 Nutritional anemia, unspecified
CPT/HCPCS: 36415; 80053; 87040; 87637; 93005; 96365; 96366; 96368; 96372; 99285; J1650; 71045; 80202; 81003; 83605; 83735; 84132; 84484; 85025; 93010; 99232; 99239; G0378; J0131; J2543; J3475

== ENCOUNTER 2023-05-10 15:33 | Outpatient (CLI) | payer BC, SELFPAY ==
--- NOTE | 2023-05-10 15:00 | DI.RAD_ITS ---
Exam(s) XR KNEE RT 3V AP,LAT,SEDRICK EXAM: XR KNEE RT 3V AP,LAT,SEDRICK CLINICAL HISTORY: Right knee pain. TECHNIQUE: 2D digital imaging was performed. Three views. COMPARISON: No exams were available for comparison FINDINGS: BONES: No acute fracture is present. No bony destructive lesion is seen. Enthesophyte upper pole of the patella. JOINTS: The knee is normally aligned. No joint effusion is seen. Minimal narrowing of the medial fe moral tibial joint space and minimal periarticular spurring. SOFT TISSUE: Normal. IMPRESSION: Minimal degenerative changes DATA REPOSITORY: RADIATION DOSE DELIVERED:
== END 2023-05-10 15:34 | disposition home or self-care (01) ==
LOC: DIORS 15:34
PROVIDERS: PCP Family Medicine; Referring Provider Family Medicine; Visit Provider Student in an Organized Health Care Education/Training Program
DX: M25.561 Pain in right knee (principal)
CPT/HCPCS: 73562

== ENCOUNTER 2023-06-06 02:05 | Outpatient (RCR) | payer BC, SELFPAY ==
[2023-06-06] MEDS: Heparin 500 UNITS/5 ML SYRINGE IV (07:13)
[2023-06-06] MEDS: Normal Saline Flush 10 ML SYR IVP (07:13)
[2023-06-06 07:23] LABS: Abs Immature Grans 0.03 10^3/uL (0.0-0.06); Absolute Basophil Count 0.02 10^3/uL (0.0-0.2); Absolute Eosinophil Count 0.01 10^3/uL (0.0-0.7); Absolute Lymphocyte Count 1.98 10^3/uL (1.2-3.4); Absolute Monocyte Count 0.75 10^3/uL (0.1-0.8); Absolute Neutrophil Count 3.47 10^3/uL (1.2-6.7); Basophils % 0.3; Eosinophils % 0.2; HCT 34.4 % (36.0-46.0); HGB 11.3 g/dL (11.2-15.7); Immature Grans % 0.5; Lymphocytes % 31.6; MCH 34.1 pg (27.0-33.0); MCHC 32.8 % (32.0-36.0); MCV 104 fL (80-95); MPV 9.6 fL (8.0-11.0); Neutrophils % 55.4; Platelet Count 188 10^3/uL (130-400); RBC 3.31 10^6/uL (3.93-5.22); RDW 15.9 % (11.7-14.6); RDW-SD 61.2 fL; WBC 6.26 10^3/uL (4.4-10.8)
[2023-06-06 07:48] LABS: ALT 31 U/L (14-59); AST 23 U/L (15-37); Albumin 3.4 g/dL (3.4-5.0); Alkaline Phosphatase 97 U/L (46-116); Anion Gap 9.8 mmol/L (3-11); BUN 14 mg/dL (7-18); Bilirubin, Total 0.3 mg/dL (0.2-1.0); CO2 26.2 mmol/L (21.0-32.0); CREATININE 0.7 mg/dL (0.55-1.02); Calcium 8.5 mg/dL (8.5-10.1); Chloride 104 mmol/L (98-107); Estimated GFR 95.32 (mL/min/1.73m2); Glucose 102 mg/dL (74-106); Sodium 140 mmol/L (136-145); Total Protein 6.7 g/dL (6.4-8.2)
[2023-06-07 11:28] LABS: CA 125 72 U/mL (<30)
== END 2023-07-06 23:59 | disposition home or self-care (01) ==
LOC: INF 02:05
PROVIDERS: PCP Family Medicine; Visit Provider Nurse Practitioner Family
DX: C54.9 Malignant neoplasm of corpus uteri, unspecified (principal); Z45.2 Encounter for adjustment and management of vascular access device
CPT/HCPCS: 36591; 80053; 86304; 85025

== ENCOUNTER 2024-01-24 14:19 | Outpatient (REF) | payer MEDICARE, BC, SELFPAY ==
[2024-01-24 15:31] LABS: C Diff PCR Negative (Negative)
== END 2024-01-24 14:20 | disposition home or self-care (01) ==
LOC: LBN 14:19
PROVIDERS: PCP Family Medicine; Visit Provider Obstetrics & Gynecology Gynecologic Oncology
DX: C57.01 Malignant neoplasm of right fallopian tube (principal); R19.7 Diarrhea, unspecified
CPT/HCPCS: 87329; 87493; 87177

== ENCOUNTER 2024-03-04 05:51 | Outpatient (CLI) | payer MEDICARE, BC, SELFPAY ==
[2024-03-04 11:47] LABS: Potassium 3.8 mmol/L (3.5-5.1)
== END 2024-03-04 05:52 | disposition home or self-care (01) ==
PROVIDERS: PCP Family Medicine; Visit Provider Obstetrics & Gynecology Gynecologic Oncology
DX: E87.5 Hyperkalemia (principal)
CPT/HCPCS: 36415; 84132

== ENCOUNTER 2024-03-05 15:42 | Outpatient (CLI) | payer MEDICARE, BC, SELFPAY ==
--- NOTE | 2024-03-05 10:00 | DI.RAD_ITS ---
Exam(s) XR KNEE LT 3V AP,LAT,SEDRICK EXAM: XR KNEE LT 3V AP,LAT,SEDRICK CLINICAL HISTORY: LEFT KNEE PAIN. TECHNIQUE: 2D digital imaging was performed. Three views. COMPARISON: CR XR KNEE RT 3V AP,LAT,SEDRICK from 05/10/2023 FINDINGS: BONES: No acute fracture is present. No bony destructive lesion is seen. JOINTS: The knee is normally aligned. No joint effusion is seen. Mild medial femoral tibial joint s pace narrowing. No significant periarticular spurring. The remaining joint spaces are maintained. SOFT TISSUE: Normal. IMPRESSION: Mild narrowing of the medial femoral tibial joint space. DATA REPOSITORY: RADIATION DOSE DELIVERED:
== END 2024-03-05 15:43 | disposition home or self-care (01) ==
LOC: DIORS 15:42
PROVIDERS: PCP Family Medicine; Referring Provider Family Medicine
DX: M17.12 Unilateral primary osteoarthritis, left knee
CPT/HCPCS: 20610; 73562; J1010

== ENCOUNTER 2024-05-01 20:47 | Outpatient (REF) | payer MEDICARE, BC, SELFPAY ==
[2024-05-01 21:45] LABS: Anion Gap 9.4 mmol/L (3-11); BUN 47 mg/dL (7-18); CO2 28.6 mmol/L (21.0-32.0); CREATININE 1.3 mg/dL (0.55-1.02); Calcium 7.9 mg/dL (8.5-10.1); Chloride 93 mmol/L (98-107); Estimated GFR 45.35 (mL/min/1.73m2); Glucose 106 mg/dL (74-106); Potassium 3.5 mmol/L (3.5-5.1); Sodium 131 mmol/L (136-145)
== END 2024-05-01 20:48 | disposition home or self-care (01) ==
LOC: LBN 20:47
PROVIDERS: PCP Family Medicine; Visit Provider Obstetrics & Gynecology Gynecologic Oncology
DX: E87.1 Hypo-osmolality and hyponatremia (principal); R79.89 Other specified abnormal findings of blood chemistry
CPT/HCPCS: 80048

== ENCOUNTER 2024-05-06 20:59 | Outpatient (REF) | payer MEDICARE, BC, SELFPAY ==
[2024-05-06 22:04] LABS: Anion Gap 8.5 mmol/L (3-11); BUN 58 mg/dL (7-18); CO2 27.5 mmol/L (21.0-32.0); CREATININE 1.5 mg/dL (0.55-1.02); Chloride 91 mmol/L (98-107); Glucose 135 mg/dL (74-106); Potassium 5.7 mmol/L (3.5-5.1); Sodium 127 mmol/L (136-145)
== END 2024-05-06 21:00 | disposition home or self-care (01) ==
LOC: LBN 20:59
PROVIDERS: PCP Family Medicine; Visit Provider Obstetrics & Gynecology Gynecologic Oncology
DX: C57.01 Malignant neoplasm of right fallopian tube (principal); E87.5 Hyperkalemia
CPT/HCPCS: 80048